=== PATIENT | female | born 1970 | race African-American/Black ===

== ENCOUNTER 2018-06-11 10:35 | Inpatient (IN) | payer OTHER ==
--- NOTE | 2018-06-11 13:06 | HP ---
CIWA Score Nausea/Vomitin Muscle Tremors: 2 Anxiety: 2 Agitation: 2 Paroxysmal Sweats: 1-Minimal Palms Moist Orientation: 0-Oriented Tacttile Disturbances: 1-Very Mild Itch/Numbness Auditory Disturbances: 1-Very Mild Visual Disturbances: 0-None Headache: 2-Mild CIWA-Ar Total Score: 13 - Admission Criteria OASAS Guidelines: Admission for Medically Managed Detox: Requires at least one of the followin. CIWA greater than 12 2. Seizures within the past 24 hours 3. Delirium tremens within the past 24 hours 4. Hallucinations within the past 24 hours 5. Acute intervention needed for co occurring medical disorder 6. Acute intervention needed for co occurring psychiatric disorder 7. Severe withdrawal that cannot be handled at a lower level of care (continued vomiting, continued diarrhea, abnormal vital signs) requiring intravenous medication and/or fluids 8. Patient presents the following: CIWA greater than 12 Admission Criteria Met: Admission criteria met Admission ROS [facility] - HPI Chief Complaint: i need help to stop drinking alcohol and marijuana Allergies/Adverse Reactions: Allergies Allergy/AdvReac Type Severity Reaction Status Date / Time Penicillins Allergy Severe Swelling Verified 06/11/18 12:58 History of Present Illness: this 47 years old female with alcohol and marijuana dependence,seeking detox, withdrawal symptom, multiple admissions in the past,last detox [facility] 03/08 not completed syncope alcohol related weight loss nicotine depression 7 cigarette history of appendectomy in 1999 amputation of left big toe in 1999 quispe bite longest period of sobriety 6 months plan for rehab Exam Limitations: No Limitations - Ebola screening Have you traveled outside of the country in the last 21 days: No Have you had contact with anyone from an Ebola affected area: No Have you been sick,other than usual withdrawal symptoms: No Do you have a fever: No - Review of Systems Constitutional: Loss of Appetite, Malaise, Night Sweats, Changes in sleep, Weakness, Unintentional Wgt. Loss EENT: reports: Nose Congestion Respiratory: reports: No Symptoms reported Cardiac: reports: No Symptoms Reported GI: reports: Nausea, Vomiting, Abdominal cramping : reports: No Symptoms Reported Musculoskeletal: reports: Back Pain, Muscle Pain Integumentary: reports: Dryness Neuro: reports: Headache, Tremors Endocrine: reports: No Symptoms Reported Hematology: reports: No Symptoms Reported Psychiatric: reports: No Sypmtoms Reported, Judgement Intact, Mood/Affect Appropiate, Orientated x3 Other Systems: Reviewed and Negative Patient History - Patient Medical History Hx Anemia: No Hx Asthma: No Hx Chronic Obstructive Pulmonary Disease (COPD): No Hx Cancer: No Hx Cardiac Disorders: No Hx Congestive Heart Failure: No Hx Hypertension: No Hx Hypercholesterolemia: No Hx Pacemaker: No HX Cerebrovascular Accident: No Hx Seizures: No Hx Dementia: No Hx Diabetes: No Hx Gastrointestinal Disorders: No Hx Liver Disease: No Hx Genitourinary Disorders: No Hx Sexually Transmitted Disorders: No Hx Renal Disease (ESRD): No Hx Thyroid Disease: No Hx Human Immunodeficiency Virus (HIV): No (05/09 negative) Hx Hepatitis C: No Hx Depression: Yes Hx Suicide Attempt: No Hx Bipolar Disorder: No Hx Schizophrenia: No Other Medical History: no suicidal,no homicidal - Patient Surgical History Past Surgical History: Yes Hx Neurologic Surgery: No Hx Cataract Extraction: No Hx Cardiac Surgery: No Hx Lung Surgery: No Hx Breast Surgery: No Hx Breast Biopsy: No Hx Abdominal Surgery: No Hx Appendectomy: Yes (early ) Hx Cholecystectomy: No Hx Genitourinary Surgery: No Hx Section: No Hx Orthopedic Surgery: Yes (amputation left big toe in 1999) Hx Hysterectomy: No Anesthesia Reaction: No - PPD History Previous Implant?: Yes Date: 01/02/15 PPD to be Administered?: No - Reproductive History Patient is a Female of Child Bearing Age (11 -55 yrs old): Yes Last Menstrual Period: 02/13/16 Patient : No - Smoking Cessation Smoking history: Current every day smoker Have you smoked in the past 12 months: Yes Aproximately how many cigarettes per day: 7 Cigars Per Day: 0 Hx Chewing Tobacco Use: No Initiated information on smoking cessation: Yes 'Breaking Loose' booklet given: 06/11/18 - Substance & Tx. History Hx Alcohol Use: Yes Hx Substance Use: Yes Substance Use Type: Alcohol, Marijuana Hx Substance Use Treatment: Yes ([facility] 03/08 not completed) - Substances Abused Alcohol Route: Oral Frequency: Daily Amount used: 1 pint liquor/4 beers Age of first use: 18 Date of Last Use: 06/10/18 Marijuana/Hashish Route: Smoking Frequency: Daily Amount used: 2 blunts Age of first use: 10 Date of Last Use: 06/10/18 Family Disease History - Family Disease History Family Disease History: Heart Disease: Father, Mother (), Sister ( ) Admission Physical Exam [facility] - Vital Signs Vital Signs: Vital Signs - 24 hr 06/11/18 10:48 Temperature 97.2 F L Pulse Rate 64 Respiratory 17 Rate Blood Pressure 129/90 - Physical General Appearance: Yes: Moderate Distress, Tremorous, Irritable, Sweating, Anxious HEENTM: Yes: Normal ENT Inspection, LADAN, Pharynx Normal, Other (no teeth upper) Respiratory: Yes: Within Normal Limits, Lungs Clear, Normal Breath Sounds Neck: Yes: Within Normal Limits, Supple, Trachea in good position Breast: Yes: Breast Exam Deferred Cardiology: Yes: Within Normal Limits, Regular Rhythm, Regular Rate, S1, S2 Abdominal: Yes: Within Normal Limits, Normal Bowel Sounds, Non Tender, Soft Genitourinary: Yes: Within Normal Limits Back: Yes: Muscle Spasm Musculoskeletal: Yes: Back pain, Muscle Pain Extremities: Yes: Within Normal Limits, Normal Range of Motion, Tremors, Other ( amputation of left big toe frostbite) Neurological: Yes: lap checker II-XII NML intact, Alert, Motor Strength 5/5 Integumentary: Yes: Dry Lymphatic: Yes: Within Normal Limits - Diagnostic (1) Alcohol dependence with withdrawal Current Visit: No Status: Acute Qualifiers: Complication of substance-induced condition: uncomplicated Qualified Code(s ): F10.230 - Alcohol dependence with withdrawal, uncomplicated (2) Cannabis dependence, uncomplicated Current Visit: No Status: Chronic (3) Nicotine dependence Current Visit: No Status: Chronic Qualifiers: Nicotine product type: cigarettes Substance use status: uncomplicated Qualified Code(s): F17.210 - Nicotine dependence, cigarettes, uncomplicated (4) Weight loss Current Visit: No Status: Suspected Cleared for Admission [facility] - Detox or Rehab [facility] Level of Care: Medically Managed Detox Regimen/Protocol: Librium [facility] Breath Alcohol Content Breath Alcohol Content: 0 Urine Pregancy Test - Result Urine Test Results: Negative- NO Line Present Urine Drug Screen - Results Drug Screen Negative: No Urine Drug Screen Results: THC-Marijuana, BZO-Benzodiazepines, MTD-Methadone Inpatient Rehab Admission - Rehab Decision to Admit Inpatient rehab admission?: No
[2018-06-11] MEDS ORDERED: ACETAMINOPHEN 325 MG TABLET (FP) PO PRN (13:19)
[2018-06-11] MEDS ORDERED: MAGNESIUM CITRATE 300 ML BOTTLE PO PRN (13:19)
[2018-06-11] MEDS ORDERED: IBUPROFEN 400 MG TABLET (FP) PO PRN (13:19)
[2018-06-11] MEDS ORDERED: MAGNESIUM HYDROX 2400MG/30ML ORAL SUSPENSION 30 ML CUP PO PRN (13:19)
[2018-06-11] MEDS ORDERED: MAG HYDROX/AL HYDROX/SIMETH 30 ML UNIT-DOSE CUP PO PRN (13:19)
[2018-06-11] MEDS ORDERED: LOPERAMIDE HCL 2 MG CAPSULE PO PRN (13:19)
[2018-06-11] MEDS ORDERED: MENTHOL/PHENOL 1 EACH UD MM PRN (13:19)
[2018-06-11] MEDS ORDERED: P-EPHED 60MG/TRIPROLIDI 2.5MG TABLET PO PRN (13:19)
[2018-06-11] MEDS ORDERED: guaiFENesin/D-METHORPHAN HB 10 ML UNIT-DOSE CUPS PO PRN (13:19)
[2018-06-11] MEDS ORDERED: hydrOXYzine PAMOATE 25 MG CAPSULE (FP) PO PRN (13:19)
[2018-06-11] MEDS ORDERED: chlordiazePOXIDE HCL 25 MG CAPSULE PO PRN (13:19)
--- NOTE | 2018-06-11 13:28 | HP ---
CIWA Score Nausea/Vomitin Muscle Tremors: 2 Anxiety: 2 Agitation: 2 Paroxysmal Sweats: 1-Minimal Palms Moist Orientation: 0-Oriented Tacttile Disturbances: 1-Very Mild Itch/Numbness Auditory Disturbances: 1-Very Mild Visual Disturbances: 0-None Headache: 2-Mild CIWA-Ar Total Score: 13 - Admission Criteria OASAS Guidelines: Admission for Medically Managed Detox: Requires at least one of the followin. CIWA greater than 12 2. Seizures within the past 24 hours 3. Delirium tremens within the past 24 hours 4. Hallucinations within the past 24 hours 5. Acute intervention needed for co occurring medical disorder 6. Acute intervention needed for co occurring psychiatric disorder 7. Severe withdrawal that cannot be handled at a lower level of care (continued vomiting, continued diarrhea, abnormal vital signs) requiring intravenous medication and/or fluids 8. Admission ROS S - HPI Allergies/Adverse Reactions: Allergies Allergy/AdvReac Type Severity Reaction Status Date / Time Penicillins Allergy Severe Swelling Verified 06/11/18 12:58 - Ebola screening Have you traveled outside of the country in the last 21 days: No Have you had contact with anyone from an Ebola affected area: No Have you been sick,other than usual withdrawal symptoms: No Do you have a fever: No Patient History - Patient Medical History Hx Anemia: No Hx Asthma: No Hx Chronic Obstructive Pulmonary Disease (COPD): No Hx Cancer: No Hx Cardiac Disorders: No Hx Congestive Heart Failure: No Hx Hypertension: No Hx Hypercholesterolemia: No Hx Pacemaker: No HX Cerebrovascular Accident: No Hx Seizures: No Hx Dementia: No Hx Diabetes: No Hx Gastrointestinal Disorders: No Hx Liver Disease: No Hx Genitourinary Disorders: No Hx Sexually Transmitted Disorders: No Hx Renal Disease (ESRD): No Hx Thyroid Disease: No Hx Human Immunodeficiency Virus (HIV): No (05/09 negative) Hx Hepatitis C: No Hx Depression: Yes Hx Suicide Attempt: No Hx Bipolar Disorder: No Hx Schizophrenia: No Other Medical History: no suicidal,no homicidal - Patient Surgical History Past Surgical History: Yes Hx Neurologic Surgery: No Hx Cataract Extraction: No Hx Cardiac Surgery: No Hx Lung Surgery: No Hx Breast Surgery: No Hx Breast Biopsy: No Hx Abdominal Surgery: No Hx Appendectomy: Yes (early ) Hx Cholecystectomy: No Hx Genitourinary Surgery: No Hx Section: No Hx Orthopedic Surgery: Yes (amputation left big toe in 1999) Hx Hysterectomy: No Anesthesia Reaction: No - PPD History Previous Implant?: Yes Documented Results: Negative w/proof Implanted On Prior [facility] Admission?: Yes Date: 01/02/15 - Reproductive History Last Menstrual Period: 02/13/16 Patient : No - Smoking Cessation Smoking history: Current every day smoker Have you smoked in the past 12 months: Yes Aproximately how many cigarettes per day: 7 Cigars Per Day: 0 Hx Chewing Tobacco Use: No Initiated information on smoking cessation: Yes - Substance & Tx. History Hx Alcohol Use: Yes Hx Substance Use: Yes Substance Use Type: Alcohol, Marijuana Hx Substance Use Treatment: Yes ([facility] 03/08) - Substances Abused Alcohol Route: Oral Frequency: Daily Amount used: 1 pint liquor/4 beers Age of first use: 18 Date of Last Use: 06/10/18 Marijuana/Hashish Route: Smoking Frequency: Daily Amount used: 2 blunts Age of first use: 10 Date of Last Use: 06/10/18 Family Disease History - Family Disease History Family Disease History: Heart Disease: Father, Mother (), Sister ( ) Admission Physical Exam [facility] - Vital Signs Vital Signs: Vital Signs - 24 hr 06/11/18 10:48 Temperature 97.2 F L Pulse Rate 64 Respiratory 17 Rate Blood Pressure 129/90 - Physical General Appearance: Yes: Moderate Distress, Tremorous, Irritable, Sweating, Anxious HEENTM: Yes: Normal ENT Inspection, LADAN, Pharynx Normal, Other (no upper teeth) Respiratory: Yes: Lungs Clear, Normal Breath Sounds, No Respiratory Distress Neck: Yes: Within Normal Limits, Supple, Trachea in good position Breast: Yes: Breast Exam Deferred Cardiology: Yes: Within Normal Limits, Regular Rhythm, Regular Rate, S1, S2 Abdominal: Yes: Within Normal Limits, Normal Bowel Sounds, Non Tender, Flat, Soft Genitourinary: Yes: Within Normal Limits Back: Yes: Muscle Spasm Musculoskeletal: Yes: Back pain, Muscle Pain Extremities: Yes: Tremors Neurological: Yes: back tufter II-XII NML intact, Alert, Motor Strength 5/5 Integumentary: Yes: Dry Lymphatic: Yes: Within Normal Limits - Diagnostic (1) Alcohol dependence with withdrawal Current Visit: No Status: Acute Qualifiers: Complication of substance-induced condition: uncomplicated Qualified Code(s ): F10.230 - Alcohol dependence with withdrawal, uncomplicated (2) Cannabis dependence, uncomplicated Current Visit: No Status: Chronic (3) Nicotine dependence Current Visit: No Status: Chronic Qualifiers: Nicotine product type: cigarettes Substance use status: uncomplicated Qualified Code(s): F17.210 - Nicotine dependence, cigarettes, uncomplicated (4) Weight loss Current Visit: No Status: Suspected (5) No natural teeth Current Visit: Yes Status: Acute Cleared for Admission [facility] - Detox or Rehab [facility] Level of Care: Medically Managed Detox Regimen/Protocol: Librium [facility] Breath Alcohol Content Breath Alcohol Content: 0 Urine Pregancy Test - Result Urine Test Results: Negative- NO Line Present Urine Drug Screen - Results Drug Screen Negative: No Urine Drug Screen Results: THC-Marijuana, BZO-Benzodiazepines, MTD-Methadone
[2018-06-11] MEDS: chlordiazePOXIDE HCL 25 MG CAPSULE PO SCH ×2 (17:28→22:26)
[2018-06-11] MEDS: THIAMINE HCL 100 MG TABLET (FP) PO SCH (22:26)
[2018-06-12] MEDS: chlordiazePOXIDE HCL 25 MG CAPSULE PO SCH ×4 (05:42→22:09)
[2018-06-12] MEDS ORDERED: METHADONE HCL 10 MG TABLET PO ONE (09:24)
[2018-06-12] MEDS ORDERED: METHADONE 40 MG, METHADONE 30 MG PO ONE (09:45)
[2018-06-12] MEDS ORDERED: METHADONE HCL 40 MG DISPERSABLE TABLET ONE (10:09)
[2018-06-12] MEDS ORDERED: METHADONE HCL 10 MG TABLET ONE (10:09)
[2018-06-12 10:34] LABS: ALBUMIN 3.8 g/dl (3.4-5.0); ALK PHOS 83 U/L (45-117); ANION GAP 6 MMOL/L (8-16); BILIRUBIN,TOTAL 0.5 mg/dL (0.2-1); BLOOD UREA NITROGEN 17 mg/dL (7-18); CALCIUM 8.7 mg/dL (8.5-10.1); CHLORIDE 104 mmol/L (98-107); CO2 26 mmol/L (21-32); CREATININE 0.8 mg/dL (0.55-1.3); GLUCOSE,RANDOM 74 mg/dL (74-106); POTASSIUM 4.2 mmol/L (3.5-5.1); SGOT/AST 20 U/L (15-37); SGPT/ALT 24 U/L (13-61); SODIUM 136 mmol/L (136-145); TOT PROT 7.2 g/dl (6.4-8.2)
[2018-06-12 10:40] LABS: HEMATOCRIT 38.9 % (32.4-45.2); HEMOGLOBIN 13.2 GM/dL (10.7-15.3); MCH 32.2 pg (25.7-33.7); MCHC 33.9 g/dl (32.0-36.0); MEAN CELL VOLUME 95.3 fl (80-96); MEAN PLT VOLUME 9.7 fl (7.5-11.1); PLATELET COUNT 237 K/MM3 (134-434); RBC 4.09 M/mm3 (3.60-5.2); RDW 14.6 % (11.6-15.6); WHITE BLOOD COUNT 8.7 K/mm3 (4.0-10.0)
[2018-06-12] MEDS: PRENATAL VITAMINS W/ FOLIC ACID TABLET (FP) PO SCH (10:49)
[2018-06-12 11:15] LABS: SICKLE CELL SCREEN NEGATIVE (NEGATIVE)
--- NOTE | 2018-06-12 11:38 | PN ---
[facility] CIWA - CIWA Score Nausea/Vomitin-No Nausea/No Vomiting Muscle Tremors: 3 Anxiety: 2 Agitation: 3 Paroxysmal Sweats: 2 Orientation: 0-Oriented Tacttile Disturbances: 0-None Auditory Disturbances: 0-None Visual Disturbances: 0-None Headache: 0-None Present CIWA-Ar Total Score: 10 S Progress Note (SOAP) Subjective: sweats irritable agitation body aches Objective: 06/12/18 11:53 Vital Signs Temperature 98.2 F 06/12/18 09:01 Pulse Rate 63 06/12/18 09:01 Respiratory Rate 18 06/12/18 09:01 Blood Pressure 112/68 06/12/18 09:01 O2 Sat by Pulse Oximetry (%) Laboratory Tests 06/12/18 06/12/18 06/12/18 06:25 06:25 06:25 WBC 8.7 RBC 4.09 Hgb 13.2 Hct 38.9 MCV 95.3 MCH 32.2 MCHC 33.9 RDW 14.6 Plt Count 237 MPV 9.7 Sickle Cell Screen Negative Sodium 136 Potassium 4.2 Chloride 104 Carbon Dioxide 26 Anion Gap 6 L BUN 17 Creatinine 0.8 Creat Clearance w eGFR > 60 Random Glucose 74 Calcium 8.7 Total Bilirubin 0.5 AST 20 ALT 24 Alkaline Phosphatase 83 Total Protein 7.2 Albumin 3.8 RPR Titer Nonreactive aaox3 ambulating no acute distress Assessment: 06/12/18 11:53 withdrawal sx Plan: continue detox increase fluids
--- NOTE | 2018-06-12 11:55 | PN ---
[facility] Progress Note Note: ulcer to right lower leg noted, healing process noted; will order to cleanse with N/S, apply silverdene and cover with gauze.
[2018-06-12] MEDS: SILVER SULFADIAZINE 1% TOP CREAM 400 GM JAR TP SCH (13:30)
[2018-06-12] MEDS: THIAMINE HCL 100 MG TABLET (FP) PO SCH (22:09)
[2018-06-12] MEDS: MELATONIN 5 MG TABLETS PO PRN (22:09)
[2018-06-13] MEDS ORDERED: METHADONE HCL 10 MG TABLET ONE (04:45)
[2018-06-13] MEDS ORDERED: METHADONE HCL 40 MG DISPERSABLE TABLET ONE (04:45)
[2018-06-13] MEDS: METHADONE 40 MG, METHADONE 30 MG PO SCH (05:28)
[2018-06-13] MEDS: chlordiazePOXIDE HCL 25 MG CAPSULE PO SCH ×2 (05:28→11:32)
[2018-06-13] MEDS ORDERED: METHADONE HCL 40 MG DISPERSABLE TABLET PO SCH (06:00)
[2018-06-13] MEDS: PRENATAL VITAMINS W/ FOLIC ACID TABLET (FP) PO SCH (10:14)
[2018-06-13] MEDS: SILVER SULFADIAZINE 1% TOP CREAM 400 GM JAR TP SCH (10:15)
--- NOTE | 2018-06-13 15:07 | PN ---
[facility] CIWA - CIWA Score Nausea/Vomitin-No Nausea/No Vomiting Muscle Tremors: 4-Moderate,w/Arms Extend Anxiety: 4-Mod. Anxious/Guarded Agitation: 4-Moderately Restless Paroxysmal Sweats: 1-Minimal Palms Moist Orientation: 0-Oriented Tacttile Disturbances: 0-None Auditory Disturbances: 0-None Visual Disturbances: 0-None Headache: 0-None Present CIWA-Ar Total Score: 13 B[facility] Progress Note (SOAP) Subjective: PT C/O STOMACH CRAMPS AND DIARRHEA. PT REPORTS HX FX OF RIGHT ANKLE 4 MONTHS AGO. ALSO HAS ULCER OF RIGHT ANKLE WHICH HE STATES WAS A BLISTER FROM HOT WATER AT HOME THAT OPENED UP. Objective: 06/13/18 15:06 Vital Signs 06/13/18 10:15 Temperature 98.1 F Pulse Rate 62 Respiratory 16 Rate Blood Pressure 103/62 Laboratory Tests 06/12/18 06/12/18 06/12/18 06:25 06:25 06:25 WBC 8.7 RBC 4.09 Hgb 13.2 Hct 38.9 MCV 95.3 MCH 32.2 MCHC 33.9 RDW 14.6 Plt Count 237 MPV 9.7 Sickle Cell Screen Negative Sodium 136 Potassium 4.2 Chloride 104 Carbon Dioxide 26 Anion Gap 6 L BUN 17 Creatinine 0.8 Creat Clearance w eGFR > 60 Random Glucose 74 Calcium 8.7 Total Bilirubin 0.5 AST 20 ALT 24 Alkaline Phosphatase 83 Total Protein 7.2 Albumin 3.8 RPR Titer Nonreactive Assessment: 06/13/18 15:06 WITHDRAWAL SX Plan: CONTINUE DETOX CONTINUE CURRENT DRESSING.
[2018-06-13] MEDS: chlordiazePOXIDE 5 MG CAPSULE PO SCH ×2 (18:13→22:17)
[2018-06-13] MEDS: THIAMINE HCL 100 MG TABLET (FP) PO SCH (22:17)
[2018-06-13] MEDS: MELATONIN 5 MG TABLETS PO PRN (22:18)
[2018-06-14] MEDS ORDERED: METHADONE HCL 40 MG DISPERSABLE TABLET ONE (04:56)
[2018-06-14] MEDS ORDERED: METHADONE HCL 10 MG TABLET ONE (04:56)
[2018-06-14] MEDS: METHADONE 40 MG, METHADONE 30 MG PO SCH (05:28)
[2018-06-14] MEDS: chlordiazePOXIDE 5 MG CAPSULE PO SCH ×2 (05:28→10:13)
[2018-06-14] MEDS: NICOTINE POLACRILEX 2 MG GUM BC PRN ×2 (05:32→17:48)
[2018-06-14] MEDS: PRENATAL VITAMINS W/ FOLIC ACID TABLET (FP) PO SCH (10:13)
[2018-06-14] MEDS: SILVER SULFADIAZINE 1% TOP CREAM 400 GM JAR TP SCH (10:13)
--- NOTE | 2018-06-14 17:32 | PN ---
S Progress Note (SOAP) Subjective: Sweating, chills, tremor, interrupted sleep Objective: 06/14/18 17:31 Last Vital Signs Temp Pulse Resp BP Pulse Ox 97.6 F 63 16 107/72 06/14/18 13:35 06/14/18 13:35 06/14/18 13:35 06/14/18 13:35 Laboratory Tests 06/12/18 06/12/18 06/12/18 06:25 06:25 06:25 WBC 8.7 RBC 4.09 Hgb 13.2 Hct 38.9 MCV 95.3 MCH 32.2 MCHC 33.9 RDW 14.6 Plt Count 237 MPV 9.7 Sickle Cell Screen Negative Sodium 136 Potassium 4.2 Chloride 104 Carbon Dioxide 26 Anion Gap 6 L BUN 17 Creatinine 0.8 Creat Clearance w eGFR > 60 Random Glucose 74 Calcium 8.7 Total Bilirubin 0.5 AST 20 ALT 24 Alkaline Phosphatase 83 Total Protein 7.2 Albumin 3.8 RPR Titer Nonreactive Labs reviewed Assessment: 06/14/18 17:31 Withdrawal symptoms Plan: Continue detox Encouraged PO water hydration
[2018-06-14] MEDS: chlordiazePOXIDE HCL 10 MG CAPSULE PO SCH ×2 (17:42→22:09)
[2018-06-14] MEDS: THIAMINE HCL 100 MG TABLET (FP) PO SCH (22:09)
[2018-06-14] MEDS: MELATONIN 5 MG TABLETS PO PRN (22:10)
[2018-06-15] MEDS ORDERED: METHADONE HCL 10 MG TABLET ONE (03:53)
[2018-06-15] MEDS ORDERED: METHADONE HCL 40 MG DISPERSABLE TABLET ONE (03:53)
[2018-06-15] MEDS: chlordiazePOXIDE HCL 10 MG CAPSULE PO SCH ×2 (05:37→10:22)
[2018-06-15] MEDS: METHADONE 40 MG, METHADONE 30 MG PO SCH (05:37)
[2018-06-15] MEDS: NICOTINE POLACRILEX 2 MG GUM BC PRN (05:41)
--- NOTE | 2018-06-15 08:42 | DS ---
[facility] Detox Discharge Summary Admission Date: 06/11/18 Discharge Date: 06/15/18 - History Present History: Alcohol Dependence, Cannabis Dependence, Opioid Dependence - Physical Exam Results Vital Signs: Vital Signs Temperature 97.9 F 06/15/18 06:47 Pulse Rate 72 06/15/18 06:47 Respiratory Rate 18 06/15/18 06:47 Blood Pressure 117/64 06/15/18 06:47 O2 Sat by Pulse Oximetry (%) - Treatment Hospital Course: Detox Protocol Followed, Detoxed Safely, Responded well, Discharged Condition Good, Rehab Referral Accepted - Medication Discharge Medications: Ambulatory Orders NK [No Known Home Medication] 06/11/18 - Diagnosis (1) No natural teeth Current Visit: Yes Status: Chronic (2) Alcohol dependence with withdrawal Current Visit: No Status: Chronic Qualifiers: Complication of substance-induced condition: uncomplicated Qualified Code(s ): F10.230 - Alcohol dependence with withdrawal, uncomplicated (3) Uncomplicated opioid dependence Current Visit: Yes Status: Chronic (4) Cannabis dependence, uncomplicated Current Visit: Yes Status: Chronic (5) Cocaine dependence Current Visit: Yes Status: Chronic Qualifiers: Substance use status: uncomplicated Qualified Code(s): F14.20 - Cocaine dependence, uncomplicated (6) MDD (major depressive disorder) Current Visit: No Status: Chronic Qualifiers: Major depression recurrence: recurrent Active/Remission status: in partial remission Qualified Code(s): F33.41 - Major depressive disorder, recurrent, in partial remission (7) Nicotine dependence Current Visit: Yes Status: Chronic Qualifiers: Nicotine product type: cigarettes Substance use status: uncomplicated Qualified Code(s): F17.210 - Nicotine dependence, cigarettes, uncomplicated (8) Weight loss Current Visit: No Status: Suspected - AMA Did Patient Leave Against [facility]
[2018-06-15] MEDS: SILVER SULFADIAZINE 1% TOP CREAM 400 GM JAR TP SCH (10:22)
[2018-06-15] MEDS: PRENATAL VITAMINS W/ FOLIC ACID TABLET (FP) PO SCH (10:22)
[2018-06-15 14:56] VITALS: BP 125/91; PULSE 82; TEMP 97.5
== END 2018-06-15 13:58 | disposition other institution (70) | DRG 773 ==
LOC: YASAS 10:35 → Y6N 13:12
PROVIDERS: ADMIT Surgery; ATTEND Surgery
PROC: HZ2ZZZZ Detoxification Services for Substance Abuse Treatment (ICD-10-PCS; principal; 2018-06-11)
DX: F11.23 Opioid dependence with withdrawal (principal); F10.230 Alcohol dependence with withdrawal, uncomplicated; F14.20 Cocaine dependence, uncomplicated; F12.20 Cannabis dependence, uncomplicated; F17.210 Nicotine dependence, cigarettes, uncomplicated; F33.41 Major depressive disorder, recurrent, in partial remission; L97.311 Non-pressure chronic ulcer of right ankle limited to breakdown of skin; K00.0 Anodontia; R63.4 Abnormal weight loss; Z68.20 Body mass index [BMI] 20.0-20.9, adult; Z87.81 Personal history of (healed) traumatic fracture; Z89.412 Acquired absence of left great toe
CPT/HCPCS: 36415; 80053; 85027; 85660; 86593

== ENCOUNTER 2018-06-15 14:08 | Inpatient (IN) | payer OTHER ==
--- NOTE | 2018-06-15 13:57 | HP ---
[facility] Rehab Assess/Revision - Admission History Admitted to Rehab from[facility] - Findings Detox History & Physical reviewed: Yes Concur with findings: Yes Inpatient Rehab Admission - Rehab Decision to Admit Inpatient rehab admission?: Yes - Initial Determination Are CD services needed?: Yes Free of communicable disease: Yes Not in need of hospitalization: Yes - Rehab Admission Criteria Previous failed treatment: Yes Poor recovery environment: Yes Comorbidities: Yes Lacks judgement: Yes Patient is meeting Inpatient Rehab admission criteria:: Yes
[~2018-06-15 14:08] MED LIST: ACETAMINOPHEN 325 MG TABLET (FP) PO PRN; LOPERAMIDE HCL 2 MG CAPSULE PO PRN; MAG HYDROX/AL HYDROX/SIMETH 30 ML UNIT-DOSE CUP PO PRN; MAGNESIUM CITRATE 300 ML BOTTLE PO PRN; MAGNESIUM HYDROX 2400MG/30ML ORAL SUSPENSION 30 ML CUP PO PRN; MENTHOL/PHENOL 1 EACH UD MM PRN; P-EPHED 60MG/TRIPROLIDI 2.5MG TABLET PO PRN; guaiFENesin/D-METHORPHAN HB 10 ML UNIT-DOSE CUPS PO PRN
[2018-06-15] MEDS: MELATONIN 5 MG TABLETS PO PRN (21:09)
[2018-06-15] MEDS: THIAMINE HCL 100 MG TABLET (FP) PO SCH (21:09)
[2018-06-15] MEDS: hydrOXYzine PAMOATE 50 MG CAPSULE (FP) PO PRN (21:09)
[2018-06-15] MEDS: NICOTINE POLACRILEX 4 MG GUM BUC PRN (21:26)
[2018-06-16] MEDS ORDERED: METHADONE HCL 10 MG TABLET ONE (04:54)
[2018-06-16] MEDS ORDERED: METHADONE HCL 40 MG DISPERSABLE TABLET ONE (04:54)
[2018-06-16] MEDS ORDERED: METHADONE HCL 10 MG TABLET PO SCH (06:00)
[2018-06-16] MEDS: METHADONE 40 MG, METHADONE 30 MG PO SCH (06:14)
[2018-06-16] MEDS: NICOTINE 21 MG/24 HOURS TOPICAL PATCH TD SCH (09:54)
[2018-06-16] MEDS: PRENATAL VITAMINS W/ FOLIC ACID TABLET (FP) PO SCH (09:54)
[2018-06-16] MEDS: NICOTINE POLACRILEX 4 MG GUM BUC PRN (09:55)
[2018-06-16] MEDS: SILVER SULFADIAZINE 1% TOP CREAM 50 GM JAR TP SCH (14:34)
[2018-06-16] MEDS: THIAMINE HCL 100 MG TABLET (FP) PO SCH (21:28)
[2018-06-16] MEDS: hydrOXYzine PAMOATE 50 MG CAPSULE (FP) PO PRN (21:29)
[2018-06-16] MEDS: MELATONIN 5 MG TABLETS PO PRN (21:29)
[2018-06-17] MEDS ORDERED: METHADONE HCL 10 MG TABLET ONE (04:09)
[2018-06-17] MEDS ORDERED: METHADONE HCL 40 MG DISPERSABLE TABLET ONE (04:09)
[2018-06-17] MEDS: METHADONE 40 MG, METHADONE 30 MG PO SCH (06:05)
[2018-06-17] MEDS ORDERED: PT OWN MED DRAWER 7, Y5N ONE (08:53)
[2018-06-17] MEDS: PRENATAL VITAMINS W/ FOLIC ACID TABLET (FP) PO SCH (10:43)
[2018-06-17] MEDS: NICOTINE POLACRILEX 4 MG GUM BUC PRN ×2 (10:43→21:25)
[2018-06-17] MEDS: SILVER SULFADIAZINE 1% TOP CREAM 50 GM JAR TP SCH (10:43)
[2018-06-17] MEDS: NICOTINE 21 MG/24 HOURS TOPICAL PATCH TD SCH (10:43)
[2018-06-17] MEDS: THIAMINE HCL 100 MG TABLET (FP) PO SCH (21:24)
[2018-06-17] MEDS: MELATONIN 5 MG TABLETS PO PRN (21:24)
[2018-06-17] MEDS: hydrOXYzine PAMOATE 50 MG CAPSULE (FP) PO PRN (21:24)
[2018-06-18] MEDS ORDERED: METHADONE HCL 10 MG TABLET ONE (03:50)
[2018-06-18] MEDS ORDERED: METHADONE HCL 40 MG DISPERSABLE TABLET ONE (03:50)
[2018-06-18] MEDS: METHADONE 40 MG, METHADONE 30 MG PO SCH (06:13)
[2018-06-18] MEDS: SILVER SULFADIAZINE 1% TOP CREAM 50 GM JAR TP SCH (10:15)
[2018-06-18] MEDS: NICOTINE 21 MG/24 HOURS TOPICAL PATCH TD SCH (10:15)
[2018-06-18] MEDS: PRENATAL VITAMINS W/ FOLIC ACID TABLET (FP) PO SCH (10:15)
[2018-06-18] MEDS: NICOTINE POLACRILEX 4 MG GUM BUC PRN (10:16)
[2018-06-18] MEDS: hydrOXYzine PAMOATE 50 MG CAPSULE (FP) PO PRN (21:32)
[2018-06-18] MEDS: THIAMINE HCL 100 MG TABLET (FP) PO SCH (21:32)
[2018-06-18] MEDS: MELATONIN 5 MG TABLETS PO PRN (21:32)
[2018-06-19] MEDS ORDERED: METHADONE HCL 40 MG DISPERSABLE TABLET ONE (03:17)
[2018-06-19] MEDS ORDERED: METHADONE HCL 10 MG TABLET ONE (03:17)
[2018-06-19] MEDS: METHADONE 40 MG, METHADONE 30 MG PO SCH (06:13)
[2018-06-19] MEDS: hydrOXYzine PAMOATE 50 MG CAPSULE (FP) PO PRN ×2 (10:11→21:26)
[2018-06-19] MEDS: PRENATAL VITAMINS W/ FOLIC ACID TABLET (FP) PO SCH (10:11)
[2018-06-19] MEDS: NICOTINE 21 MG/24 HOURS TOPICAL PATCH TD SCH (10:11)
[2018-06-19] MEDS: SILVER SULFADIAZINE 1% TOP CREAM 50 GM JAR TP SCH (10:11)
[2018-06-19] MEDS: NICOTINE POLACRILEX 4 MG GUM BUC PRN (10:12)
[2018-06-19] MEDS: MELATONIN 5 MG TABLETS PO PRN (21:26)
[2018-06-19] MEDS: THIAMINE HCL 100 MG TABLET (FP) PO SCH (21:26)
[2018-06-20] MEDS ORDERED: METHADONE HCL 40 MG DISPERSABLE TABLET ONE (04:45)
[2018-06-20] MEDS ORDERED: METHADONE HCL 10 MG TABLET ONE (04:45)
[2018-06-20] MEDS: METHADONE 40 MG, METHADONE 30 MG PO SCH (06:05)
[2018-06-20] MEDS: PRENATAL VITAMINS W/ FOLIC ACID TABLET (FP) PO SCH (10:03)
[2018-06-20] MEDS: SILVER SULFADIAZINE 1% TOP CREAM 50 GM JAR TP SCH (10:03)
[2018-06-20] MEDS: hydrOXYzine PAMOATE 50 MG CAPSULE (FP) PO PRN ×3 (10:04→21:04)
[2018-06-20] MEDS: NICOTINE POLACRILEX 4 MG GUM BUC PRN (10:05)
[2018-06-20] MEDS: NICOTINE 21 MG/24 HOURS TOPICAL PATCH TD SCH (10:05)
[2018-06-20] MEDS: MELATONIN 5 MG TABLETS PO PRN (21:04)
[2018-06-20] MEDS: THIAMINE HCL 100 MG TABLET (FP) PO SCH (21:04)
[2018-06-21] MEDS: IBUPROFEN 400 MG TABLET (FP) PO PRN ×2 (00:44→18:47)
[2018-06-21] MEDS ORDERED: METHADONE HCL 40 MG DISPERSABLE TABLET ONE (04:13)
[2018-06-21] MEDS ORDERED: METHADONE HCL 10 MG TABLET ONE (04:13)
[2018-06-21] MEDS: METHADONE 40 MG, METHADONE 30 MG PO SCH (06:13)
[2018-06-21] MEDS ORDERED: LIDOCAINE VISCOUS 2% ORAL/TOP 20 ML UNIT-DOSE CUP MM PRN (06:30)
--- NOTE | 2018-06-21 07:30 | PN ---
S Progress Note Note: Patient complained of mouth pain and mouth sore. Patient has no upper teeth and some missing lower tooth. She has two protruding canine tooth that is in constant contact with her upper mouth. Vital Signs Temperature 98.0 F 06/21/18 07:07 Pulse Rate 73 06/21/18 07:07 Respiratory Rate 18 06/21/18 07:07 Blood Pressure 121/76 06/21/18 07:07 O2 Sat by Pulse Oximetry (%) Action: Lodicaine 2% viscous oral 20 ml MM oral prn ordered
[2018-06-21] MEDS: PRENATAL VITAMINS W/ FOLIC ACID TABLET (FP) PO SCH (09:59)
[2018-06-21] MEDS: hydrOXYzine PAMOATE 50 MG CAPSULE (FP) PO PRN ×3 (10:00→21:19)
[2018-06-21] MEDS: NICOTINE 21 MG/24 HOURS TOPICAL PATCH TD SCH (10:00)
[2018-06-21] MEDS: SILVER SULFADIAZINE 1% TOP CREAM 50 GM JAR TP SCH (10:00)
[2018-06-21] MEDS: NICOTINE POLACRILEX 4 MG GUM BUC PRN (10:02)
[2018-06-21] MEDS: THIAMINE HCL 100 MG TABLET (FP) PO SCH (21:19)
[2018-06-21] MEDS: MELATONIN 5 MG TABLETS PO PRN (21:19)
[2018-06-22] MEDS ORDERED: METHADONE HCL 40 MG DISPERSABLE TABLET ONE (03:37)
[2018-06-22] MEDS ORDERED: METHADONE HCL 10 MG TABLET ONE (03:37)
[2018-06-22] MEDS: METHADONE 40 MG, METHADONE 30 MG PO SCH (06:17)
[2018-06-22] MEDS ORDERED: COLLOIDAL OATMEAL 1 BAR EACH TP PRN (09:52)
--- NOTE | 2018-06-22 09:56 | PN ---
[facility] Progress Note Note: PATIENT SEEN FOR C/O MOUTH SORES. PATIENT EXAMINED AND HAS MISSING UPPER TEETH. TWO SMALL CHANCRE SORES NOTED B/L UPPER GUMS. CURRENTLY ON VICOUS LIDOCAINE FOR PAIN. WILL INCREASE MOTRIN TO 600MG Q6H PRN. MONITOR CLINICALLY. Vital Signs Temperature 98.0 F 06/21/18 07:07 Pulse Rate 69 06/22/18 07:17 Respiratory Rate 18 06/22/18 07:17 Blood Pressure 112/65 06/22/18 07:17 O2 Sat by Pulse Oximetry (%)
[2018-06-22] MEDS: PRENATAL VITAMINS W/ FOLIC ACID TABLET (FP) PO SCH (10:26)
[2018-06-22] MEDS: SILVER SULFADIAZINE 1% TOP CREAM 50 GM JAR TP SCH (10:26)
[2018-06-22] MEDS: NICOTINE 21 MG/24 HOURS TOPICAL PATCH TD SCH (10:26)
[2018-06-22] MEDS: hydrOXYzine PAMOATE 50 MG CAPSULE (FP) PO PRN ×3 (10:27→21:38)
[2018-06-22] MEDS: IBUPROFEN 600 MG TABLET (FP) PO PRN (16:22)
[2018-06-22] MEDS: THIAMINE HCL 100 MG TABLET (FP) PO SCH (21:38)
[2018-06-23] MEDS: IBUPROFEN 600 MG TABLET (FP) PO PRN ×3 (04:03→22:56)
[2018-06-23] MEDS ORDERED: METHADONE HCL 40 MG DISPERSABLE TABLET ONE (04:13)
[2018-06-23] MEDS ORDERED: METHADONE HCL 10 MG TABLET ONE (04:13)
[2018-06-23] MEDS: METHADONE 40 MG, METHADONE 30 MG PO SCH (06:00)
[2018-06-23] MEDS: PRENATAL VITAMINS W/ FOLIC ACID TABLET (FP) PO SCH (10:10)
[2018-06-23] MEDS: hydrOXYzine PAMOATE 50 MG CAPSULE (FP) PO PRN ×3 (10:10→21:24)
[2018-06-23] MEDS: NICOTINE POLACRILEX 4 MG GUM BUC PRN ×3 (10:10→22:57)
[2018-06-23] MEDS: NICOTINE 21 MG/24 HOURS TOPICAL PATCH TD SCH (10:11)
[2018-06-23] MEDS: SILVER SULFADIAZINE 1% TOP CREAM 50 GM JAR TP SCH (10:11)
[2018-06-23] MEDS: THIAMINE HCL 100 MG TABLET (FP) PO SCH (21:24)
[2018-06-23] MEDS: MELATONIN 5 MG TABLETS PO PRN (21:25)
[2018-06-24] MEDS ORDERED: METHADONE HCL 40 MG DISPERSABLE TABLET ONE (05:08)
[2018-06-24] MEDS ORDERED: METHADONE HCL 10 MG TABLET ONE (05:08)
[2018-06-24] MEDS: METHADONE 40 MG, METHADONE 30 MG PO SCH (06:01)
[2018-06-24] MEDS: NICOTINE POLACRILEX 4 MG GUM BUC PRN ×4 (06:40→21:21)
[2018-06-24] MEDS: NICOTINE 21 MG/24 HOURS TOPICAL PATCH TD SCH ×2 (10:04→10:06)
[2018-06-24] MEDS: PRENATAL VITAMINS W/ FOLIC ACID TABLET (FP) PO SCH (10:04)
[2018-06-24] MEDS: hydrOXYzine PAMOATE 50 MG CAPSULE (FP) PO PRN ×3 (10:04→21:20)
[2018-06-24] MEDS: SILVER SULFADIAZINE 1% TOP CREAM 50 GM JAR TP SCH (10:04)
[2018-06-24] MEDS: THIAMINE HCL 100 MG TABLET (FP) PO SCH (21:20)
[2018-06-24] MEDS: MELATONIN 5 MG TABLETS PO PRN (21:20)
[2018-06-25] MEDS ORDERED: METHADONE HCL 40 MG DISPERSABLE TABLET ONE (05:14)
[2018-06-25] MEDS ORDERED: METHADONE HCL 10 MG TABLET ONE (05:14)
[2018-06-25] MEDS: METHADONE 40 MG, METHADONE 30 MG PO SCH (06:00)
[2018-06-25] MEDS: SILVER SULFADIAZINE 1% TOP CREAM 50 GM JAR TP SCH (10:12)
[2018-06-25] MEDS: PRENATAL VITAMINS W/ FOLIC ACID TABLET (FP) PO SCH (10:12)
[2018-06-25] MEDS: NICOTINE 21 MG/24 HOURS TOPICAL PATCH TD SCH (10:13)
[2018-06-25] MEDS: NICOTINE POLACRILEX 4 MG GUM BUC PRN ×2 (10:14→21:39)
[2018-06-25] MEDS: THIAMINE HCL 100 MG TABLET (FP) PO SCH (21:39)
[2018-06-26] MEDS ORDERED: METHADONE HCL 10 MG TABLET ONE (04:39)
[2018-06-26] MEDS ORDERED: METHADONE HCL 40 MG DISPERSABLE TABLET ONE (04:40)
[2018-06-26] MEDS: METHADONE 40 MG, METHADONE 30 MG PO SCH (06:11)
[2018-06-26] MEDS: NICOTINE POLACRILEX 4 MG GUM BUC PRN ×3 (06:51→13:57)
[2018-06-26] MEDS: PRENATAL VITAMINS W/ FOLIC ACID TABLET (FP) PO SCH (10:21)
[2018-06-26] MEDS: NICOTINE 21 MG/24 HOURS TOPICAL PATCH TD SCH (10:22)
[2018-06-26] MEDS: SILVER SULFADIAZINE 1% TOP CREAM 50 GM JAR TP SCH (10:22)
[2018-06-26] MEDS: THIAMINE HCL 100 MG TABLET (FP) PO SCH (23:30)
[2018-06-27] MEDS ORDERED: METHADONE HCL 40 MG DISPERSABLE TABLET ONE (05:11)
[2018-06-27] MEDS ORDERED: METHADONE HCL 10 MG TABLET ONE (05:11)
[2018-06-27] MEDS: METHADONE 40 MG, METHADONE 30 MG PO SCH (06:04)
[2018-06-27] MEDS: NICOTINE POLACRILEX 4 MG GUM BUC PRN ×3 (08:36→18:27)
[2018-06-27] MEDS: NICOTINE 21 MG/24 HOURS TOPICAL PATCH TD SCH (09:31)
[2018-06-27] MEDS: SILVER SULFADIAZINE 1% TOP CREAM 50 GM JAR TP SCH (09:31)
[2018-06-27] MEDS: PRENATAL VITAMINS W/ FOLIC ACID TABLET (FP) PO SCH (09:31)
[2018-06-27] MEDS: THIAMINE HCL 100 MG TABLET (FP) PO SCH (21:58)
[2018-06-28] MEDS ORDERED: METHADONE HCL 40 MG DISPERSABLE TABLET ONE (03:12)
[2018-06-28] MEDS ORDERED: METHADONE HCL 10 MG TABLET ONE (03:12)
[2018-06-28] MEDS: METHADONE 40 MG, METHADONE 30 MG PO SCH (06:33)
[2018-06-28] MEDS: NICOTINE 21 MG/24 HOURS TOPICAL PATCH TD SCH (09:40)
[2018-06-28] MEDS: PRENATAL VITAMINS W/ FOLIC ACID TABLET (FP) PO SCH (09:40)
[2018-06-28] MEDS: SILVER SULFADIAZINE 1% TOP CREAM 50 GM JAR TP SCH (09:40)
[2018-06-28] MEDS: NICOTINE POLACRILEX 4 MG GUM BUC PRN ×2 (13:00→21:26)
[2018-06-28] MEDS: THIAMINE HCL 100 MG TABLET (FP) PO SCH (21:25)
[2018-06-29] MEDS ORDERED: METHADONE HCL 40 MG DISPERSABLE TABLET ONE (04:00)
[2018-06-29] MEDS ORDERED: METHADONE HCL 10 MG TABLET ONE (04:00)
[2018-06-29] MEDS: METHADONE 40 MG, METHADONE 30 MG PO SCH (05:44)
[2018-06-29 07:05] VITALS: BP 123/85; PULSE 62; TEMP 97
[2018-06-29] MEDS: NICOTINE POLACRILEX 4 MG GUM BUC PRN (08:31)
--- NOTE | 2018-06-29 09:40 | PN ---
[facility] Progress Note Note: REHAB DISCHARGE NOTE: PATIENT REQUESTED EARLY DISCHARGE FROM REHAB SHE COMPLETED 14 DAYS OF TREATMENT. PATIENT TO FOLLOW UP WITH [facility] AND STATES SHE ACCOMPLISHED ALL REHAB GOALS. PATIENT IS MEDICALLY STABLE AT THIS TIME AND DENIES SI/HI. RIGHT ANTERIOR LOWER LEG ULCER RESOLVED. PATIENT ENCOURAGED TO ATTEND GROUP MEETINGS TO PREVENT RELAPSE AND FOLLOW UP WITH PCP WITHIN ONE WEEK OF D/C. NO HOME MEDICATIONS TO BE SENT TO PHARMACY. Vital Signs Temperature 97 F L 06/29/18 07:04 Pulse Rate 62 06/29/18 07:04 Respiratory Rate 18 06/29/18 07:04 Blood Pressure 123/85 06/29/18 07:04 O2 Sat by Pulse Oximetry (%)
[2018-06-29] MEDS: NICOTINE 21 MG/24 HOURS TOPICAL PATCH TD SCH (09:59)
[2018-06-29] MEDS: PRENATAL VITAMINS W/ FOLIC ACID TABLET (FP) PO SCH (09:59)
[2018-06-29] MEDS: SILVER SULFADIAZINE 1% TOP CREAM 50 GM JAR TP SCH (10:00)
[2018-06-30] MEDS ORDERED: METHADONE 40 MG, METHADONE 30 MG PO SCH (06:00)
== END 2018-06-29 11:20 | disposition home or self-care (01) | DRG 772 ==
LOC: YASAS 14:08 → Y3W 14:09
PROVIDERS: ADMIT Neuromusculoskeletal Medicine & OMM; ATTEND Neuromusculoskeletal Medicine & OMM
PROC: HZ42ZZZ Group Counseling for Substance Abuse Treatment, Cognitive-Behavioral (ICD-10-PCS; principal; 2018-06-15)
DX: F10.20 Alcohol dependence, uncomplicated (principal); F12.20 Cannabis dependence, uncomplicated; F17.210 Nicotine dependence, cigarettes, uncomplicated; K13.70 Unspecified lesions of oral mucosa; Z89.412 Acquired absence of left great toe; R63.4 Abnormal weight loss; Z68.20 Body mass index [BMI] 20.0-20.9, adult; Z88.0 Allergy status to penicillin

== ENCOUNTER 2018-09-15 12:24 | Inpatient (IN) | payer OTHER ==
[2018-09-15 16:36] VITALS: BMI 19.0
--- NOTE | 2018-09-15 17:19 | HP ---
CIWA Score Nausea/Vomitin-Mild Nausea/No Vomiting Muscle Tremors: 3 Anxiety: 2 Agitation: 3 Paroxysmal Sweats: 2 Orientation: 0-Oriented Tacttile Disturbances: 0-None Auditory Disturbances: 0-None Visual Disturbances: 0-None Headache: 1-Very Mild CIWA-Ar Total Score: 12 - Admission Criteria OASAS Guidelines: Admission for Medically Managed Detox: Requires at least one of the followin. CIWA greater than 12 2. Seizures within the past 24 hours 3. Delirium tremens within the past 24 hours 4. Hallucinations within the past 24 hours 5. Acute intervention needed for co occurring medical disorder 6. Acute intervention needed for co occurring psychiatric disorder 7. Severe withdrawal that cannot be handled at a lower level of care (continued vomiting, continued diarrhea, abnormal vital signs) requiring intravenous medication and/or fluids 8. Patient presents the following: CIWA greater than 12 Admission Criteria Met: Admission criteria met Admission ROS [facility] Chief Complaint: here for alcohol detox, on MAT methadone. Uses marijuana 47 yo with no medical problems, no medications. Last here about 3 months ago for alcohol detox- and completed 2 weeks of rehab here. Pt states she relapsed with alcohol use soon after discharge. Pt states did not attend AA meetings or take any MAT for alcohol. She has no PCP. Pt is homeless, does not work. Sleeps at [facility] and sometimes Gets welfare money. Alcohol- 2 pints of alcohol- no h/o seizures/DT's MJ: $40/day DUR- no meds LUIZ- Utox- THC, BZO, MTD- denies BZO use Allergies/Adverse Reactions: Allergies Allergy/AdvReac Type Severity Reaction Status Date / Time Penicillins Allergy Severe Swelling Verified 06/11/18 12:58 - Ebola screening Have you traveled outside of the country in the last 21 days: No (N) Have you had contact with anyone from an Ebola affected area: No Do you have a fever: No Patient History - Patient Medical History Hx Anemia: No Hx Asthma: No Hx Chronic Obstructive Pulmonary Disease (COPD): No Hx Cancer: No Hx Cardiac Disorders: No Hx Congestive Heart Failure: No Hx Hypertension: No Hx Hypercholesterolemia: No Hx Pacemaker: No HX Cerebrovascular Accident: No Hx Seizures: No Hx Dementia: No Hx Diabetes: No Hx Gastrointestinal Disorders: No Hx Liver Disease: No Hx Genitourinary Disorders: No Hx Sexually Transmitted Disorders: No Hx Renal Disease (ESRD): No Hx Thyroid Disease: No Hx Human Immunodeficiency Virus (HIV): No (05/09 negative) Hx Hepatitis C: No Hx Depression: No Hx Suicide Attempt: No Hx Bipolar Disorder: No Hx Schizophrenia: No - Patient Surgical History Past Surgical History: Yes Hx Neurologic Surgery: No Hx Cataract Extraction: No Hx Cardiac Surgery: No Hx Lung Surgery: No Hx Breast Surgery: No Hx Breast Biopsy: No Hx Abdominal Surgery: No Hx Appendectomy: Yes (early ) Hx Cholecystectomy: No Hx Genitourinary Surgery: No Hx Section: No Hx Orthopedic Surgery: Yes (amputation left big toe in 1999) Hx Hysterectomy: No Anesthesia Reaction: No - PPD History Documented Results: Negative w/o proof Date: 01/02/15 - Reproductive History Patient is a Female of Child Bearing Age (11 -55 yrs old): Yes Last Menstrual Period: 02/13/16 Patient : No - Smoking Cessation Smoking history: Current every day smoker Have you smoked in the past 12 months: Yes Aproximately how many cigarettes per day: 2 Cigars Per Day: 0 Hx Chewing Tobacco Use: No Initiated information on smoking cessation: Yes 'Breaking Loose' booklet given: 09/15/18 - Substance & Tx. History Hx Alcohol Use: Yes Hx Substance Use: Yes Substance Use Type: Alcohol, Marijuana Hx Substance Use Treatment: Yes - Substances abused Alcohol Substance route: Oral Frequency: Daily Amount used: 2 pint of vodka Age of first use: 16 Date of last use: 09/15/18 Marijuana/Hashish Substance route: Smoking Frequency: Daily Amount used: $40/day Age of first use: 11 Date of last use: 09/15/18 Family Disease History - Family Disease History Family Disease History: Heart Disease: Father, Mother (), Sister ( ) Admission Physical Exam [facility] - Vital Signs Vital Signs: Vital Signs - 24 hr 09/15/18 16:28 Temperature 97 F L Pulse Rate 60 Respiratory 19 Rate Blood Pressure 104/78 - Physical General Appearance: Yes: Within Normal Limits, Cachetic, Thin, Tremorous HEENTM: Yes: Within Normal Limits, Normal Voice, LADAN, Other (mostly edentulous - has few bottom teeth) Respiratory: Yes: Within Normal Limits, Lungs Clear Neck: Yes: Within Normal Limits, No masses,lesions,Nodules Cardiology: Yes: Within Normal Limits, S1, S2, Gallop/S4 Abdominal: Yes: Within Normal Limits, Normal Bowel Sounds, Non Tender, Flat Genitourinary: Yes: Within Normal Limits Back: Yes: Within Normal Limits Musculoskeletal: Yes: Within Normal Limits Extremities: Yes: Within Normal Limits, Amputation Neurological: Yes: Within Normal Limits, director II-XII NML intact, Fully Oriented, Alert, Motor Strength 5/5, Normal Mood/Affect, Normal Response Integumentary: Yes: Within Normal Limits - Diagnostic (1) Alcohol dependence with withdrawal Current Visit: No Status: Chronic Qualifiers: Complication of substance-induced condition: uncomplicated Qualified Code(s ): F10.230 - Alcohol dependence with withdrawal, uncomplicated (2) Cannabis dependence, uncomplicated Current Visit: No Status: Chronic (3) Nicotine dependence Current Visit: No Status: Chronic Qualifiers: Nicotine product type: cigarettes Substance use status: uncomplicated Qualified Code(s): F17.210 - Nicotine dependence, cigarettes, uncomplicated Breathalyzer - Breathalyzer Breathalyzer: 0 Urine Drug Screen - Test Device Lot number: [id number] Expiration date: 08/19/19 - Control Is test valid?: Yes - Results Drug screen NEGATIVE: No Urine drug screen results: THC-Marijuana, MTD-Methadone, BZO-Benzodiazepines Inpatient Rehab Admission - Rehab Decision to Admit Inpatient rehab admission?: No
[2018-09-15] MEDS ORDERED: MAGNESIUM HYDROX 2400MG/30ML ORAL SUSPENSION 30 ML CUP PO PRN (17:27)
[2018-09-15] MEDS ORDERED: IBUPROFEN 400 MG TABLET (FP) PO PRN (17:27)
[2018-09-15] MEDS ORDERED: MENTHOL/PHENOL 1 EACH UD MM PRN (17:27)
[2018-09-15] MEDS ORDERED: MELATONIN 5 MG TABLETS PO PRN (17:27)
[2018-09-15] MEDS ORDERED: MAG HYDROX/AL HYDROX/SIMETH 30 ML UNIT-DOSE CUP PO PRN (17:27)
[2018-09-15] MEDS ORDERED: BISMUTH SUBSALICYLATE 524 MG/30 ML UD PO PRN (17:27)
[2018-09-15] MEDS ORDERED: METHOCARBAMOL 500 MG TABLET PO PRN (17:27)
[2018-09-15] MEDS ORDERED: hydrOXYzine PAMOATE 25 MG CAPSULE (FP) PO PRN (17:27)
[2018-09-15] MEDS ORDERED: chlordiazePOXIDE HCL 10 MG CAPSULE PO PRN (17:27)
[2018-09-15] MEDS ORDERED: ACETAMINOPHEN 325 MG TABLET (FP) PO PRN ×2 (17:27)
[2018-09-15] MEDS ORDERED: MAGNESIUM CITRATE 300 ML BOTTLE PO PRN (17:27)
[2018-09-15] MEDS: chlordiazePOXIDE HCL 25 MG CAPSULE PO SCH (20:49)
[2018-09-15] MEDS: THIAMINE HCL 100 MG TABLET (FP) PO SCH (22:16)
[2018-09-16] MEDS: chlordiazePOXIDE HCL 25 MG CAPSULE PO SCH ×2 (06:06→13:22)
[2018-09-16 07:13] LABS: HCG,QUALITATIVE URINE NEGATIVE
[2018-09-16 07:34] LABS: EPI CELLS 0.8 /HPF (0-5/HPF); HYALINE CASTS 1 /lpf (0-8); URINE APPEARANCE CLOUDY; URINE BACTERIA 6142.6 /hpf (NEGATIVE); URINE BILIRUBIN NEGATIVE (NEGATIVE); URINE COLOR YELLOW; URINE GLUCOSE (UA) NEGATIVE (NEGATIVE); URINE KETONE NEGATIVE (NEGATIVE); URINE LEUK ESTERASE 1+ (NEGATIVE); URINE NITRITE POSITIVE (NEGATIVE); URINE PROTEIN NEGATIVE (NEGATIVE); URINE RBC 1 /hpf (0-4); URINE WBC 2 /hpf (0-5)
[2018-09-16 08:19] LABS: URINE CRYSTALS URIC ACID -FEW /hpf
[2018-09-16] MEDS: NICOTINE 7 MG/24 HOURS TOPICAL PATCH TD SCH (09:35)
[2018-09-16] MEDS: PRENATAL VITAMINS W/ FOLIC ACID TABLET (FP) PO SCH (09:35)
[2018-09-16] MEDS ORDERED: METHADONE HCL 10 MG TABLET PO ONE (10:00)
[2018-09-16 10:12] LABS: HEMATOCRIT 39.4 % (32.4-45.2); HEMOGLOBIN 12.8 GM/dL (10.7-15.3); MCH 30.6 pg (25.7-33.7); MCHC 32.4 g/dl (32.0-36.0); MEAN CELL VOLUME 94.6 fl (80-96); MEAN PLT VOLUME 9.8 fl (7.5-11.1); PLATELET COUNT 190 K/MM3 (134-434); RBC 4.16 M/mm3 (3.60-5.2); RDW 15.2 % (11.6-15.6); WHITE BLOOD COUNT 6.2 K/mm3 (4.0-10.0)
[2018-09-16] MEDS ORDERED: METHADONE 40 MG, METHADONE 20 MG, METHADONE 5 MG PO ONE (10:30)
[2018-09-16 10:38] LABS: ALBUMIN 3.4 g/dl (3.4-5.0); BILIRUBIN,TOTAL 0.4 mg/dL (0.2-1); CALCIUM 9.3 mg/dL (8.5-10.1); CREATININE 0.9 mg/dL (0.55-1.3); POTASSIUM 4.1 mmol/L (3.5-5.1); TOT PROT 6.4 g/dl (6.4-8.2)
[2018-09-16] MEDS ORDERED: METHADONE HCL 40 MG DISPERSABLE TABLET ONE (10:43)
[2018-09-16] MEDS ORDERED: METHADONE HCL 10 MG TABLET ONE (10:43)
[2018-09-16] MEDS ORDERED: METHADONE HCL 5 MG TABLET ONE (10:44)
[2018-09-16] MEDS ORDERED: COLLOIDAL OATMEAL 1 BAR EACH TP PRN (10:54)
--- NOTE | 2018-09-16 11:58 | PN ---
[facility] CIWA - CIWA Score Nausea/Vomitin-Mild Nausea/No Vomiting Muscle Tremors: 3 Anxiety: 1-Mildly Anxious Agitation: 2 Paroxysmal Sweats: 1-Minimal Palms Moist Orientation: 1-Uncertain about Date Tacttile Disturbances: 1-Very Mild Itch/Numbness Auditory Disturbances: 0-None Visual Disturbances: 0-None Headache: 1-Very Mild CIWA-Ar Total Score: 11 [facility] Progress Note (SOAP) Subjective: doing better today had methadon 65 mg po Objective: 09/16/18 11:56 Vital Signs Temperature 97.2 F L 09/16/18 09:11 Pulse Rate 58 L 09/16/18 09:11 Respiratory Rate 16 09/16/18 09:11 Blood Pressure 124/80 09/16/18 09:11 O2 Sat by Pulse Oximetry (%) Laboratory Last Values WBC 6.2 K/mm3 (4.0-10.0) 09/16/18 07:00 RBC 4.16 M/mm3 (3.60-5.2) 09/16/18 07:00 Hgb 12.8 GM/dL (10.7-15.3) 09/16/18 07:00 Hct 39.4 % (32.4-45.2) 09/16/18 07:00 MCV 94.6 fl (80-96) 09/16/18 07:00 MCH 30.6 pg (25.7-33.7) 09/16/18 07:00 MCHC 32.4 g/dl (32.0-36.0) 09/16/18 07:00 RDW 15.2 % (11.6-15.6) 09/16/18 07:00 Plt Count 190 K/MM3 (134-434) 09/16/18 07:00 MPV 9.8 fl (7.5-11.1) 09/16/18 07:00 Sodium 143 mmol/L (136-145) 09/16/18 07:00 Potassium 4.1 mmol/L (3.5-5.1) 09/16/18 07:00 Chloride 107 mmol/L (98-107) 09/16/18 07:00 Carbon Dioxide 30 mmol/L (21-32) 09/16/18 07:00 Anion Gap 6 MMOL/L (8-16) L 09/16/18 07:00 BUN 14 mg/dL (7-18) 09/16/18 07:00 Creatinine 0.9 mg/dL (0.55-1.3) 09/16/18 07:00 Est GFR (CKD-EPI)AfAm 87.63 09/16/18 07:00 Est GFR (CKD-EPI)NonAf 75.61 09/16/18 07:00 Random Glucose 80 mg/dL (74-106) 09/16/18 07:00 Calcium 9.3 mg/dL (8.5-10.1) 09/16/18 07:00 Total Bilirubin 0.4 mg/dL (0.2-1) 09/16/18 07:00 AST 13 U/L (15-37) L 09/16/18 07:00 ALT 14 U/L (13-61) 09/16/18 07:00 Alkaline Phosphatase 76 U/L (45-117) 09/16/18 07:00 Total Protein 6.4 g/dl (6.4-8.2) 09/16/18 07:00 Albumin 3.4 g/dl (3.4-5.0) 09/16/18 07:00 Urine Color Yellow 09/15/18 18:42 Urine Appearance Cloudy 09/15/18 18:42 Urine pH 6.0 (5.0-8.0) 09/15/18 18:42 Ur Specific [place] 1.020 (1.010-1.035) 09/15/18 18:42 Urine Protein Negative (NEGATIVE) 09/15/18 18:42 Urine Glucose (UA) Negative (NEGATIVE) 09/15/18 18:42 Urine Ketones Negative (NEGATIVE) 09/15/18 18:42 Urine Blood 1+ (NEGATIVE) H 09/15/18 18:42 Urine Nitrite Positive (NEGATIVE) H 09/15/18 18:42 Urine Bilirubin Negative (NEGATIVE) 09/15/18 18:42 Urine Urobilinogen 1.0 mg/dL (0.2-1.0) 09/15/18 18:42 Ur Leukocyte Esterase 1+ (NEGATIVE) H 09/15/18 18:42 Urine WBC (Auto) 2 /hpf (0-5) 09/15/18 18:42 Urine RBC (Auto) 1 /hpf (0-4) 09/15/18 18:42 Urine Casts (Auto) 1 /lpf (0-8) 09/15/18 18:42 U Epithel Cells (Auto) 0.8 /HPF (0-5/HPF) 09/15/18 18:42 Urine Crystals (Auto) Uric acid -few /hpf 09/15/18 18:42 Urine Bacteria (Auto) 6142.6 /hpf (NEGATIVE) 09/15/18 18:42 Urine HCG, Qual Negative 09/15/18 18:42 POC Urine HCG, Qual Cancelled 09/15/18 18:42 lab noted uti Assessment: 09/16/18 12:00 ALCOHOL WITHDRAWAL SX UTI Plan: CONTINUE ALCOHOL DETOX BACTRIM DS BID
[2018-09-16] MEDS: SULFAMETHOXAZOLE/TRIMETHOPRIM 800MG/160MG D.S. TABLET PO SCH ×2 (13:00→22:21)
[2018-09-16] MEDS: chlordiazePOXIDE 5 MG CAPSULE PO SCH (20:35)
[2018-09-16] MEDS: THIAMINE HCL 100 MG TABLET (FP) PO SCH (22:21)
[2018-09-17] MEDS ORDERED: METHADONE HCL 10 MG TABLET ONE (04:13)
[2018-09-17] MEDS ORDERED: METHADONE HCL 40 MG DISPERSABLE TABLET ONE (04:13)
[2018-09-17] MEDS ORDERED: METHADONE HCL 5 MG TABLET ONE (04:13)
[2018-09-17] MEDS ORDERED: METHADONE HCL 10 MG TABLET PO SCH (06:00)
[2018-09-17] MEDS: chlordiazePOXIDE 5 MG CAPSULE PO SCH ×2 (06:20→13:45)
[2018-09-17] MEDS: METHADONE 40 MG, METHADONE 20 MG, METHADONE 5 MG PO SCH (06:20)
[2018-09-17] MEDS: NICOTINE 7 MG/24 HOURS TOPICAL PATCH TD SCH (10:09)
[2018-09-17] MEDS: SULFAMETHOXAZOLE/TRIMETHOPRIM 800MG/160MG D.S. TABLET PO SCH ×2 (10:09→22:17)
[2018-09-17] MEDS: PRENATAL VITAMINS W/ FOLIC ACID TABLET (FP) PO SCH (10:09)
[2018-09-17] MEDS: NICOTINE POLACRILEX 2 MG GUM BUC PRN (10:11)
--- NOTE | 2018-09-17 13:49 | PN ---
[facility] CIWA - CIWA Score Nausea/Vomitin Muscle Tremors: 2 Anxiety: 2 Agitation: 2 Paroxysmal Sweats: 1-Minimal Palms Moist Orientation: 1-Uncertain about Date Tacttile Disturbances: 0-None Auditory Disturbances: 0-None Visual Disturbances: 0-None Headache: 0-None Present CIWA-Ar Total Score: 10 S Progress Note (SOAP) Subjective: patient vomited x 1 from "open" librium requests to take librium "whole" without "open" patient tolerates "whole" librium well and no longer vomiting denies GI discomfort Objective: 09/17/18 13:56 Vital Signs Temperature 99.0 F 09/17/18 13:37 Pulse Rate 54 L 09/17/18 13:37 Respiratory Rate 18 09/17/18 13:37 Blood Pressure 133/79 09/17/18 13:37 O2 Sat by Pulse Oximetry (%) Laboratory Last Values WBC 6.2 K/mm3 (4.0-10.0) 09/16/18 07:00 RBC 4.16 M/mm3 (3.60-5.2) 09/16/18 07:00 Hgb 12.8 GM/dL (10.7-15.3) 09/16/18 07:00 Hct 39.4 % (32.4-45.2) 09/16/18 07:00 MCV 94.6 fl (80-96) 09/16/18 07:00 MCH 30.6 pg (25.7-33.7) 09/16/18 07:00 MCHC 32.4 g/dl (32.0-36.0) 09/16/18 07:00 RDW 15.2 % (11.6-15.6) 09/16/18 07:00 Plt Count 190 K/MM3 (134-434) 09/16/18 07:00 MPV 9.8 fl (7.5-11.1) 09/16/18 07:00 Sodium 143 mmol/L (136-145) 09/16/18 07:00 Potassium 4.1 mmol/L (3.5-5.1) 09/16/18 07:00 Chloride 107 mmol/L (98-107) 09/16/18 07:00 Carbon Dioxide 30 mmol/L (21-32) 09/16/18 07:00 Anion Gap 6 MMOL/L (8-16) L 09/16/18 07:00 BUN 14 mg/dL (7-18) 09/16/18 07:00 Creatinine 0.9 mg/dL (0.55-1.3) 09/16/18 07:00 Est GFR (CKD-EPI)AfAm 87.63 09/16/18 07:00 Est GFR (CKD-EPI)NonAf 75.61 09/16/18 07:00 Random Glucose 80 mg/dL (74-106) 09/16/18 07:00 Calcium 9.3 mg/dL (8.5-10.1) 09/16/18 07:00 Total Bilirubin 0.4 mg/dL (0.2-1) 09/16/18 07:00 AST 13 U/L (15-37) L 09/16/18 07:00 ALT 14 U/L (13-61) 09/16/18 07:00 Alkaline Phosphatase 76 U/L (45-117) 09/16/18 07:00 Total Protein 6.4 g/dl (6.4-8.2) 09/16/18 07:00 Albumin 3.4 g/dl (3.4-5.0) 09/16/18 07:00 Urine Color Yellow 09/15/18 18:42 Urine Appearance Cloudy 09/15/18 18:42 Urine pH 6.0 (5.0-8.0) 09/15/18 18:42 Ur Specific [place] 1.020 (1.010-1.035) 09/15/18 18:42 Urine Protein Negative (NEGATIVE) 09/15/18 18:42 Urine Glucose (UA) Negative (NEGATIVE) 09/15/18 18:42 Urine Ketones Negative (NEGATIVE) 09/15/18 18:42 Urine Blood 1+ (NEGATIVE) H 09/15/18 18:42 Urine Nitrite Positive (NEGATIVE) H 09/15/18 18:42 Urine Bilirubin Negative (NEGATIVE) 09/15/18 18:42 Urine Urobilinogen 1.0 mg/dL (0.2-1.0) 09/15/18 18:42 Ur Leukocyte Esterase 1+ (NEGATIVE) H 09/15/18 18:42 Urine WBC (Auto) 2 /hpf (0-5) 09/15/18 18:42 Urine RBC (Auto) 1 /hpf (0-4) 09/15/18 18:42 Urine Casts (Auto) 1 /lpf (0-8) 09/15/18 18:42 U Epithel Cells (Auto) 0.8 /HPF (0-5/HPF) 09/15/18 18:42 Urine Crystals (Auto) Uric acid -few /hpf 09/15/18 18:42 Urine Bacteria (Auto) 6142.6 /hpf (NEGATIVE) 09/15/18 18:42 Urine HCG, Qual Negative 09/15/18 18:42 POC Urine HCG, Qual Cancelled 09/15/18 18:42 RPR Titer Nonreactive (NONREACTIVE) 09/16/18 07:00 lab noted uti continue bactrim ds 09/17/18 13:57 Assessment: 09/17/18 13:57 alcohol withdrawal sx Plan: continue detox
[2018-09-17] MEDS ORDERED: chlordiazePOXIDE HCL 10 MG CAPSULE PO PRN (21:00)
[2018-09-17] MEDS: chlordiazePOXIDE HCL 10 MG CAPSULE PO SCH (22:16)
[2018-09-17] MEDS: THIAMINE HCL 100 MG TABLET (FP) PO SCH (22:17)
[2018-09-18] MEDS ORDERED: METHADONE HCL 10 MG TABLET ONE (04:32)
[2018-09-18] MEDS ORDERED: METHADONE HCL 40 MG DISPERSABLE TABLET ONE (04:33)
[2018-09-18] MEDS ORDERED: METHADONE HCL 5 MG TABLET ONE (04:33)
[2018-09-18] MEDS: METHADONE 40 MG, METHADONE 20 MG, METHADONE 5 MG PO SCH (05:15)
[2018-09-18] MEDS: chlordiazePOXIDE HCL 10 MG CAPSULE PO SCH ×2 (05:15→15:16)
[2018-09-18 09:43] VITALS: PULSE 58
[2018-09-18] MEDS: NICOTINE 7 MG/24 HOURS TOPICAL PATCH TD SCH (10:29)
[2018-09-18] MEDS: PRENATAL VITAMINS W/ FOLIC ACID TABLET (FP) PO SCH (10:29)
[2018-09-18] MEDS: SULFAMETHOXAZOLE/TRIMETHOPRIM 800MG/160MG D.S. TABLET PO SCH (10:29)
[2018-09-18] MEDS: NICOTINE POLACRILEX 2 MG GUM BUC PRN (10:30)
[2018-09-18 12:59] VITALS: BP 118/75; TEMP 98.4
--- NOTE | 2018-09-18 13:36 | PN ---
[facility] CIWA - CIWA Score Nausea/Vomitin-No Nausea/No Vomiting Muscle Tremors: 1-None Visible, but [place] Anxiety: 1-Mildly Anxious Agitation: 1-Slight > Activity Paroxysmal Sweats: No Perspiration Orientation: 0-Oriented Tacttile Disturbances: 0-None Auditory Disturbances: 0-None Visual Disturbances: 0-None Headache: 1-Very Mild CIWA-Ar Total Score: 4 [facility] Progress Note (SOAP) Subjective: alert,no com[plaint Objective: 09/18/18 13:35 Vital Signs Temperature 98.4 F 09/18/18 12:59 Pulse Rate 58 L 09/18/18 12:59 Respiratory Rate 16 09/18/18 12:59 Blood Pressure 118/75 09/18/18 12:59 O2 Sat by Pulse Oximetry (%) Assessment: 09/18/18 13:35 detox completed,no withdrawal symptom Plan: stable to go to rehab today,discharge from detox
--- NOTE | 2018-09-18 13:39 | DS ---
[facility] Detox Discharge Summary Admission Date: 09/15/18 Discharge Date: 09/18/18 - History Present History: Alcohol Dependence, Cannabis Dependence, MMTP Pertinent Past History: mmtp nicotine dependence - Physical Exam Results Vital Signs: Vital Signs Temperature 98.4 F 09/18/18 12:59 Pulse Rate 58 L 09/18/18 12:59 Respiratory Rate 16 09/18/18 12:59 Blood Pressure 118/75 09/18/18 12:59 O2 Sat by Pulse Oximetry (%) Pertinent Admission Physical Exam Findings: withdrawal signs and symptom Vital Signs Temperature 98.4 F 09/18/18 12:59 Pulse Rate 58 L 09/18/18 12:59 Respiratory Rate 16 09/18/18 12:59 Blood Pressure 118/75 09/18/18 12:59 O2 Sat by Pulse Oximetry (%) Laboratory Last Values WBC 6.2 K/mm3 (4.0-10.0) 09/16/18 07:00 RBC 4.16 M/mm3 (3.60-5.2) 09/16/18 07:00 Hgb 12.8 GM/dL (10.7-15.3) 09/16/18 07:00 Hct 39.4 % (32.4-45.2) 09/16/18 07:00 MCV 94.6 fl (80-96) 09/16/18 07:00 MCH 30.6 pg (25.7-33.7) 09/16/18 07:00 MCHC 32.4 g/dl (32.0-36.0) 09/16/18 07:00 RDW 15.2 % (11.6-15.6) 09/16/18 07:00 Plt Count 190 K/MM3 (134-434) 09/16/18 07:00 MPV 9.8 fl (7.5-11.1) 09/16/18 07:00 Sodium 143 mmol/L (136-145) 09/16/18 07:00 Potassium 4.1 mmol/L (3.5-5.1) 09/16/18 07:00 Chloride 107 mmol/L (98-107) 09/16/18 07:00 Carbon Dioxide 30 mmol/L (21-32) 09/16/18 07:00 Anion Gap 6 MMOL/L (8-16) L 09/16/18 07:00 BUN 14 mg/dL (7-18) 09/16/18 07:00 Creatinine 0.9 mg/dL (0.55-1.3) 09/16/18 07:00 Est GFR (CKD-EPI)AfAm 87.63 09/16/18 07:00 Est GFR (CKD-EPI)NonAf 75.61 09/16/18 07:00 Random Glucose 80 mg/dL (74-106) 09/16/18 07:00 Calcium 9.3 mg/dL (8.5-10.1) 09/16/18 07:00 Total Bilirubin 0.4 mg/dL (0.2-1) 09/16/18 07:00 AST 13 U/L (15-37) L 09/16/18 07:00 ALT 14 U/L (13-61) 09/16/18 07:00 Alkaline Phosphatase 76 U/L (45-117) 09/16/18 07:00 Total Protein 6.4 g/dl (6.4-8.2) 09/16/18 07:00 Albumin 3.4 g/dl (3.4-5.0) 09/16/18 07:00 Urine Color Yellow 09/15/18 18:42 Urine Appearance Cloudy 09/15/18 18:42 Urine pH 6.0 (5.0-8.0) 09/15/18 18:42 Ur Specific [place] 1.020 (1.010-1.035) 09/15/18 18:42 Urine Protein Negative (NEGATIVE) 09/15/18 18:42 Urine Glucose (UA) Negative (NEGATIVE) 09/15/18 18:42 Urine Ketones Negative (NEGATIVE) 09/15/18 18:42 Urine Blood 1+ (NEGATIVE) H 09/15/18 18:42 Urine Nitrite Positive (NEGATIVE) H 09/15/18 18:42 Urine Bilirubin Negative (NEGATIVE) 09/15/18 18:42 Urine Urobilinogen 1.0 mg/dL (0.2-1.0) 09/15/18 18:42 Ur Leukocyte Esterase 1+ (NEGATIVE) H 09/15/18 18:42 Urine WBC (Auto) 2 /hpf (0-5) 09/15/18 18:42 Urine RBC (Auto) 1 /hpf (0-4) 09/15/18 18:42 Urine Casts (Auto) 1 /lpf (0-8) 09/15/18 18:42 U Epithel Cells (Auto) 0.8 /HPF (0-5/HPF) 09/15/18 18:42 Urine Crystals (Auto) Uric acid -few /hpf 09/15/18 18:42 Urine Bacteria (Auto) 6142.6 /hpf (NEGATIVE) 09/15/18 18:42 Urine HCG, Qual Negative 09/15/18 18:42 POC Urine HCG, Qual Cancelled 09/15/18 18:42 RPR Titer Nonreactive (NONREACTIVE) 09/16/18 07:00 - Treatment Hospital Course: Detox Protocol Followed, Detoxed Safely, Responded well, Discharged Condition Good, Rehab Referral Accepted Patient has Accept[facility] - Medication Discharge Medications: Ambulatory Orders NK [No Known Home Medication] 06/11/18 - AMA Did Patient Leave Against Medical Advice: No
[2018-09-19] MEDS ORDERED: chlordiazePOXIDE HCL 10 MG CAPSULE PO SCH (06:00)
== END 2018-09-18 14:16 | disposition other institution (70) | DRG 773 ==
LOC: YASAS 12:24 → Y3N 17:38
PROVIDERS: ADMIT Surgery; ATTEND Surgery
PROC: HZ2ZZZZ Detoxification Services for Substance Abuse Treatment (ICD-10-PCS; principal; 2018-09-15)
DX: F10.230 Alcohol dependence with withdrawal, uncomplicated (principal); F11.20 Opioid dependence, uncomplicated; F12.20 Cannabis dependence, uncomplicated; F17.210 Nicotine dependence, cigarettes, uncomplicated; N39.0 Urinary tract infection, site not specified; Z89.412 Acquired absence of left great toe
CPT/HCPCS: 36415; 80053; 81003; 84703; 85027; 86593

== ENCOUNTER 2018-09-18 13:13 | Inpatient (IN) | payer OTHER ==
[2018-09-18 14:47] VITALS: PULSE 52
[2018-09-18] MEDS ORDERED: guaiFENesin 200 MG/10 ML 10 ML UNIT-DOSE CUPS PO PRN (15:11)
[2018-09-18] MEDS ORDERED: IBUPROFEN 400 MG TABLET (FP) PO PRN (15:11)
[2018-09-18] MEDS ORDERED: MAG HYDROX/AL HYDROX/SIMETH 30 ML UNIT-DOSE CUP PO PRN (15:11)
[2018-09-18] MEDS ORDERED: ACETAMINOPHEN 325 MG TABLET (FP) PO PRN (15:11)
[2018-09-18] MEDS ORDERED: hydrOXYzine PAMOATE 50 MG CAPSULE (FP) PO PRN (15:11)
[2018-09-18] MEDS ORDERED: MENTHOL/PHENOL 1 EACH UD MM PRN (15:11)
[2018-09-18] MEDS ORDERED: MAGNESIUM HYDROX 2400MG/30ML ORAL SUSPENSION 30 ML CUP PO PRN (15:11)
[2018-09-18] MEDS ORDERED: LOPERAMIDE HCL 2 MG CAPSULE PO PRN (15:11)
[2018-09-18] MEDS ORDERED: MAGNESIUM CITRATE 300 ML BOTTLE PO PRN (15:11)
[2018-09-18] MEDS ORDERED: P-EPHED 60MG/TRIPROLIDI 2.5MG TABLET PO PRN (15:11)
--- NOTE | 2018-09-18 15:15 | HP ---
[facility] Rehab Assess/Revision - Admission History Admitted to Rehab from: [facility] Date of Admission to Rehab: 09/18/18 - Vital signs Vital Signs: Vital Signs Period Temp Pulse Resp BP Sys/[place] Pulse Ox Last 24 Hr 96.3 F 52 16 121/69 - Findings Detox History & Physical reviewed: Yes Concur with findings: Yes Comments/Additional Findings: for rehab as protocol Inpatient Rehab Admission - Rehab Decision to Admit Inpatient rehab admission?: Yes - Initial Determination Are CD services needed?: Yes Free of communicable disease: Yes Not in need of hospitalization: Yes - Rehab Admission Criteria Previous failed treatment: Yes Poor recovery environment: Yes Comorbidities: Yes Lacks judgement: No Patient is meeting Inpatient Rehab admission criteria:: Yes
--- NOTE | 2018-09-18 15:47 | PN ---
[facility] Progress Note Note: PT REQUESTING TO SEE THE PSYCHIATRIST BECAUSE REPORTS TO NURSE NOW THAT SHE TAKES MEDICATION FOR DEPRESSION. Vital Signs 09/18/18 14:46 Temperature 96.3 F L Pulse Rate 52 L Respiratory 16 Rate Blood Pressure 121/69 TO FOLLOW UP WITH PSYCH CONSULT.
[2018-09-18] MEDS ORDERED: THIAMINE HCL 100 MG TABLET (FP) PO SCH (22:00)
[2018-09-18] MEDS ORDERED: MELATONIN 5 MG TABLETS PO PRN (22:00)
[2018-09-19] MEDS ORDERED: METHADONE HCL 10 MG TABLET PO SCH (06:00)
[2018-09-19] MEDS ORDERED: METHADONE 40 MG, METHADONE 20 MG, METHADONE 5 MG PO SCH (06:00)
[2018-09-19] MEDS ORDERED: METHADONE HCL 5 MG TABLET ONE (06:05)
[2018-09-19] MEDS ORDERED: METHADONE HCL 10 MG TABLET ONE (06:05)
[2018-09-19] MEDS ORDERED: METHADONE HCL 40 MG DISPERSABLE TABLET ONE (06:05)
[2018-09-19 07:15] VITALS: BP 100/72; TEMP 97.2
--- NOTE | 2018-09-19 09:46 | CONSULT ---
[facility] Psychiatric Consult - Data Date of interview: 09/19/18 Admission source: [facility] Identifying data: Patient is a 47 year old single female, mother of four, unemployed, and homeless. This is one of multiple admissions for patient. Patient admitted to rehab for alcohol and cannabis dependence. Substance Abuse History: Smoking Cessation. Smoking history: Current every day smoker. Have you smoked in the past 12 months: Yes. Aproximately how many cigarettes per day: 2. Cigars Per Day: 0. Hx Chewing Tobacco Use: No. Initiated information on smoking cessation: Yes. 'Breaking Loose' booklet given : 09/15/18. - Substance & Tx. History. Hx Alcohol Use: Yes. Hx Substance Use : Yes. Substance Use Type: Alcohol, Marijuana. Hx Substance Use Treatment: Yes. - Substances abused. Alcohol. Substance route: Oral. Frequency: Daily. Amount used: 2 pint of vodka. Age of first use: 16. Date of last use: 09/15/18. Marijuana/Hashish. Substance route: Smoking. Frequency: Daily. Amount used: $40/day. Age of first use: 11. Date of last use: 09/15/18 Medical History: Appendectomy, amputation left big toe in 1999 Psychiatric History: Ms. Salinas reports one psychiatric hospitalization in [facility] in 2014 for depression. She was treated with Lexapro 10mg daily which she states was effective. Patient last accepted lexapro in 2016 while in rehab in 2016. Patient reports noncompliance to medications and psychiatric treatment because of her drug use. At present she reports feeling sad, depressed , and anxious. Physical/Sexual Abuse/Trauma History: denies. Mental Status Exam - Mental Status Exam Alert and Oriented to: Time, Place, Person Cognitive Function: Good Patient Appearance: Well Groomed Mood: Sad Affect: Mood Congruent Patient Behavior: Appropriate, Cooperative Speech Pattern: Appropriate Voice Loudness: Moderately Soft/Quiet Thought Process: Goal Oriented Thought Disorder: Not Present Hallucinations: Denies Suicidal Ideation: Denies Homicidal Ideation: Denies Insight/Judgement: Poor Sleep: Fair Appetite: Fair Muscle strength/Tone: Normal Gait/Station: Normal Psychiatric Findings - Problem List ([place] 1, 2,3) (1) Substance induced mood disorder Current Visit: Yes Status: Acute (2) Cannabis dependence, uncomplicated Current Visit: Yes Status: Chronic (3) Alcohol dependence Current Visit: Yes Status: Acute - Initial Treatment Plan Initial Treatment Plan: Psychoeducation provided. Detoxification in progress. Will order Lexapro 5mg daily. Benefits and side effects discussed. Verbal consent given.
[2018-09-19] MEDS ORDERED: PRENATAL VITAMINS W/ FOLIC ACID TABLET (FP) PO SCH (10:00)
[2018-09-19] MEDS ORDERED: ESCITALOPRAM OXALATE 10 MG TABLET (FP) PO SCH (10:00)
--- NOTE | 2018-09-19 15:34 | PN ---
[facility] Progress Note Note: [facility] *LIVE* Discharge Summary Patient Name: TONYA SALTER Date of : 68 Patient Status: Inpatient Attending Provider: Lisseth Douglas Date: 09/19/18 15:31 Initialization Date: 09/19/18 15:31 [facility] Detox Discharge Summary Admission Date: 09/18/18 Discharge Date: 09/19/18 - History Present History: Alcohol Dependence, Cannabis Dependence, Cocaine Dependence, MMTP Pertinent Past History: Illicit drug use, completed detox and rehab 3 months ago - Physical Exam Results Vital Signs: Vital Signs Temperature 97.2 F L 09/19/18 07:14 Pulse Rate 52 L 09/19/18 07:14 Respiratory Rate 18 09/19/18 07:14 Blood Pressure 100/72 09/19/18 07:14 O2 Sat by Pulse Oximetry (%) - Medication Discharge Medications: Ambulatory Orders NK [No Known Home Medication] 06/11/18 - AMA Did Patient Leave Against Medical Advice: Yes
== END 2018-09-19 15:05 | disposition home or self-care (01) | DRG 772 ==
LOC: YASAS 13:13 → Y3E 13:14
PROVIDERS: ADMIT Neuromusculoskeletal Medicine & OMM; ATTEND Neuromusculoskeletal Medicine & OMM
PROC: HZ42ZZZ Group Counseling for Substance Abuse Treatment, Cognitive-Behavioral (ICD-10-PCS; principal; 2018-09-18)
DX: F10.20 Alcohol dependence, uncomplicated (principal); F11.20 Opioid dependence, uncomplicated; F12.20 Cannabis dependence, uncomplicated; F17.210 Nicotine dependence, cigarettes, uncomplicated; Z89.412 Acquired absence of left great toe

== ENCOUNTER 2019-05-19 15:00 | Inpatient (IN) | payer OTHER ==
[2019-05-19 17:56] VITALS: BMI 18.3
--- NOTE | 2019-05-19 19:56 | HP ---
"CIWA Score Nausea/Vomitin-No Nausea/No Vomiting Muscle Tremors: None Anxiety: 2 Agitation: 4-Moderately Restless Paroxysmal Sweats: 2 Orientation: 0-Oriented Tacttile Disturbances: 0-None Auditory Disturbances: 0-None Visual Disturbances: 2-Mild Sensitivity Headache: 0-None Present CIWA-Ar Total Score: 10 - Admission Criteria OASAS Guidelines: Admission for Medically Managed Detox: Requires at least one of the followin. CIWA greater than 12 2. Seizures within the past 24 hours 3. Delirium tremens within the past 24 hours 4. Hallucinations within the past 24 hours 5. Acute intervention needed for co occurring medical disorder 6. Acute intervention needed for co occurring psychiatric disorder 7. Severe withdrawal that cannot be handled at a lower level of care (continued vomiting, continued diarrhea, abnormal vital signs) requiring intravenous medication and/or fluids 8. Admitting History and Physical - Past Medical History ...LMP: 02/13/16 - Smoking History Smoking history: Current every day smoker Have you smoked in the past 12 months: Yes Aproximately how many cigarettes per day: 2 - Alcohol/Substance Use Hx Alcohol Use: Yes Admission [facility] Allergies/Adverse Reactions: Allergies Allergy/AdvReac Type Severity Reaction Status Date / Time Penicillins Allergy Severe Swelling Verified 05/19/19 17:42 History of Present Illness: Search Terms: landon borja, 1970 Search Date: 05/19/2019 07:55:24 PM The Drug Utilization Report below displays all of the controlled substance prescriptions, if any, that your patient has filled in the last twelve months. The information displayed on this report is compiled from pharmacy submissions to the Department, and accurately reflects the information as submitted by the pharmacies. This report was requested by: Lisseth Douglas | Reference #: [id number] There are no results for the search terms that you entered. 48 y.o. female here requesting detox from etoh use , claims 3-4 beers /day x 5 d/week denies blackouts or seizures , denies tremors. On MMTP , unverified , pt states she went today . PMHx ; denies denies Si / HI Exam Limitations: No Limitations - Review of Systems Constitutional: Loss of Appetite EENT: reports: Other (missing teeth) Respiratory: reports: No Symptoms reported Cardiac: reports: No Symptoms Reported GI: reports: Poor Appetite : reports: No Symptoms Reported Musculoskeletal: reports: No Symptoms Reported Integumentary: reports: Dryness Neuro: reports: No Symptoms reported Endocrine: reports: No Symptoms Reported Hematology: reports: No Symptoms Reported Psychiatric: reports: Orientated x3, Agitated Patient History - Patient Medical History Hx Anemia: No Hx Asthma: No Hx Chronic Obstructive Pulmonary Disease (COPD): No Hx Cancer: No Hx Cardiac Disorders: No Hx Congestive Heart Failure: No Hx Hypertension: No Hx Hypercholesterolemia: No Hx Pacemaker: No HX Cerebrovascular Accident: No Hx Seizures: No Hx Dementia: No Hx Diabetes: No Hx Gastrointestinal Disorders: No Hx Liver Disease: No Hx Genitourinary Disorders: No Hx Sexually Transmitted Disorders: No Hx Renal Disease (ESRD): No Hx Thyroid Disease: No Hx Human Immunodeficiency Virus (HIV): No (05/09 negative) Hx Hepatitis C: No Hx Depression: Yes Hx Suicide Attempt: Yes Hx Bipolar Disorder: No Hx Schizophrenia: No - Patient Surgical History Past Surgical History: Yes Hx Neurologic Surgery: No Hx Cataract Extraction: No Hx Cardiac Surgery: No Hx Lung Surgery: No Hx Breast Surgery: No Hx Breast Biopsy: No Hx Abdominal Surgery: No Hx Appendectomy: Yes (early ) Hx Cholecystectomy: No Hx Genitourinary Surgery: No Hx Section: No Hx Orthopedic Surgery: Yes (amputation left big toe in 1999) Hx Hysterectomy: No Anesthesia Reaction: No - PPD History Date: 09/17/18 Results: 0mm - Reproductive History Last Menstrual Period: 02/13/16 - Smoking Cessation Smoking history: Current every day smoker Have you smoked in the past 12 months: Yes Aproximately how many cigarettes per day: 2 Cigars Per Day: 0 Hx Chewing Tobacco Use: No Initiated information on smoking cessation: Yes 'Breaking Loose' booklet given: 05/19/19 - Substances abused Alcohol Substance route: Oral Frequency: 3-6 times per week Amount used: 3 to 4 beers 16 oz Age of first use: 18 Date of last use: 05/19/19 Marijuana/Hashish Substance route: Smoking Frequency: Daily Amount used: 7 to 8 blunts Age of first use: 12 Date of last use: 05/19/19 Admission Physical Exam BHS - Vital Signs Vital Signs: Vital Signs - 24 hr 05/19/19 05/19/19 17:39 18:21 Temperature 97.8 F 97.8 F Pulse Rate 62 62 Respiratory 16 16 Rate Blood Pressure 112/72 112/72 - Physical General Appearance: Yes: Thin, Anxious HEENTM: Yes: EOMI, Hearing grossly Normal, Normocephalic, Muffled/Hoarse Voice, Other (poor dentition , many missing teeth) Respiratory: Yes: Chest Non-Tender, Lungs Clear, Normal Breath Sounds, No Respiratory Distress, No Accessory Muscle Use Neck: Yes: No masses,lesions,Nodules, Trachea in good position Cardiology: Yes: Regular Rhythm, Regular Rate, S1, S2 Abdominal: Yes: Non Tender, Flat, Soft Musculoskeletal: Yes: Gait Steady Extremities: Yes: Normal Range of Motion, Non-Tender Neurological: Yes: Fully Oriented, Alert, Motor Strength 5/5 Integumentary: Yes: Dry, Warm - Diagnostic (1) Alcohol dependence Current Visit: Yes Status: Chronic Qualifiers: Substance use status: uncomplicated Qualified Code(s): F10.20 - Alcohol dependence, uncomplicated (2) Opioid dependence on agonist therapy Current Visit: Yes Status: Chronic Breathalyzer - Breathalyzer Breathalyzer: 0 Urine Drug Screen - Test Device Lot number: [id number] Expiration date: 03/15/21 - Control Is test valid?: Yes - Results Drug screen NEGATIVE: No Urine drug screen results: THC-Marijuana, MOP-Opiates, MTD-Methadone Inpatient Rehab Admission - Rehab Decision to Admit Inpatient rehab admission?: No"
[2019-05-19] MEDS ORDERED: diazePAM 5 MG TABLET PO PRN ×2 (20:15→20:17)
[2019-05-19] MEDS ORDERED: BISMUTH SUBSALICYLATE 524 MG/30 ML UD PO PRN (20:16)
[2019-05-19] MEDS ORDERED: MAGNESIUM HYDROX 2400MG/30ML ORAL SUSPENSION 30 ML CUP PO PRN (20:16)
[2019-05-19] MEDS ORDERED: NICOTINE POLACRILEX 2 MG GUM BUC PRN (20:16)
[2019-05-19] MEDS ORDERED: MAGNESIUM CITRATE 300 ML BOTTLE PO PRN (20:16)
[2019-05-19] MEDS ORDERED: IBUPROFEN 400 MG TABLET (FP) PO PRN (20:16)
[2019-05-19] MEDS ORDERED: ACETAMINOPHEN 325 MG TABLET (FP) PO PRN ×2 (20:16)
[2019-05-19] MEDS ORDERED: hydrOXYzine PAMOATE 25 MG CAPSULE (FP) PO PRN (20:16)
[2019-05-19] MEDS ORDERED: MENTHOL/PHENOL 1 EACH UD MM PRN (20:16)
[2019-05-19] MEDS ORDERED: MAG HYDROX/AL HYDROX/SIMETH 30 ML UNIT-DOSE CUP PO PRN (20:16)
[2019-05-19] MEDS: THIAMINE HCL 100 MG TABLET (FP) PO SCH (22:01)
--- NOTE | 2019-05-20 09:01 | PN ---
S CIWA - CIWA Score Nausea/Vomitin-Mild Nausea/No Vomiting Muscle Tremors: 2 Anxiety: 3 Agitation: 2 Paroxysmal Sweats: 2 Orientation: 0-Oriented Tacttile Disturbances: 0-None Auditory Disturbances: 0-None Visual Disturbances: 1-Very Mild Sensitivity Headache: 1-Very Mild CIWA-Ar Total Score: 12 BHS Progress Note (SOAP) Subjective: 48 years old female admitted on 05/19/19 for alcohol withdrawal sx management treating with valium prn patient presents ciwa 12 today and waiting for methadone 65mg today begin valium regiment reports feeling ok today ate breakfast in day room social with peers in day room Objective: 05/20/19 09:00 Vital Signs Temperature 98.1 F 05/20/19 04:00 Pulse Rate 62 05/20/19 04:00 Respiratory Rate 16 05/20/19 04:00 Blood Pressure 153/96 05/20/19 04:00 O2 Sat by Pulse Oximetry (%) 05/20/19 09:01 lab pending Assessment: 05/20/19 09:01 alcohol withdrawal Plan: valium regiment
[2019-05-20] MEDS ORDERED: METHADONE HCL 10 MG TABLET ONE (09:44)
[2019-05-20] MEDS ORDERED: METHADONE HCL 40 MG DISPERSABLE TABLET ONE (09:45)
[2019-05-20] MEDS ORDERED: METHADONE HCL 5 MG TABLET ONE (09:45)
[2019-05-20] MEDS: PRENATAL VITAMINS W/ FOLIC ACID TABLET (FP) PO SCH (09:59)
[2019-05-20] MEDS ORDERED: METHADONE 40 MG, METHADONE 20 MG, METHADONE 5 MG PO ONE (10:00)
[2019-05-20] MEDS ORDERED: METHADONE HCL 10 MG TABLET PO ONE (10:00)
[2019-05-20 10:12] LABS: HEMATOCRIT 36.6 % (32.4-45.2); MCH 30.2 pg (25.7-33.7); MCHC 32.9 g/dl (32.0-36.0); MEAN CELL VOLUME 91.9 fl (80-96); PLATELET COUNT 321 K/MM3 (134-434); RBC 3.98 M/mm3 (3.60-5.2); RDW 14.2 % (11.6-15.6); WHITE BLOOD COUNT 8.5 K/mm3 (4.0-10.0)
[2019-05-20 10:38] LABS: ALBUMIN 2.8 g/dl (3.4-5.0); BILIRUBIN,TOTAL 0.3 mg/dL (0.2-1); CALCIUM 8.8 mg/dL (8.5-10.1); CREATININE 0.7 mg/dL (0.55-1.3); POTASSIUM 4.4 mmol/L (3.5-5.1); TOT PROT 6.1 g/dl (6.4-8.2)
[2019-05-20] MEDS: diazePAM 5 MG TABLET PO SCH (17:40)
[2019-05-20] MEDS: THIAMINE HCL 100 MG TABLET (FP) PO SCH (22:12)
[2019-05-20] MEDS: MELATONIN 5 MG TABLETS PO PRN (22:12)
[2019-05-21] MEDS ORDERED: METHADONE HCL 40 MG DISPERSABLE TABLET ONE (04:11)
[2019-05-21] MEDS ORDERED: METHADONE HCL 10 MG TABLET ONE (04:11)
[2019-05-21] MEDS ORDERED: METHADONE HCL 5 MG TABLET ONE (04:11)
[2019-05-21] MEDS ORDERED: METHADONE HCL 10 MG TABLET PO SCH (06:00)
[2019-05-21] MEDS: METHADONE 40 MG, METHADONE 20 MG, METHADONE 5 MG PO SCH (06:03)
[2019-05-21] MEDS: diazePAM 5 MG TABLET PO SCH ×3 (06:31→17:02)
[2019-05-21] MEDS: PRENATAL VITAMINS W/ FOLIC ACID TABLET (FP) PO SCH (10:05)
--- NOTE | 2019-05-21 12:09 | PN ---
[facility] CIWA - CIWA Score Nausea/Vomitin-No Nausea/No Vomiting Muscle Tremors: 1-None Visible, but [place] Anxiety: 0-No Anxiety, at Ease Agitation: 0-Normal Activity Paroxysmal Sweats: No Perspiration Orientation: 0-Oriented Tacttile Disturbances: 0-None Auditory Disturbances: 0-None Visual Disturbances: 0-None Headache: 0-None Present CIWA-Ar Total Score: 1 S Progress Note (SOAP) Subjective: Patient seen at bedside eating breakfast and a little sedated while eating her cereal with milk. Very minimal withdrawal symptoms. Objective: 05/21/19 12:06 Laboratory 05/20/19 05/20/19 05/20/19 08:00 08:00 08:00 WBC 8.5 K/mm3 K/mm3 (4.0-10.0) RBC 3.98 M/mm3 M/mm3 (3.60-5.2) Hgb 12.0 GM/dL GM/dL (10.7-15.3) Hct 36.6 % % (32.4-45.2) MCV 91.9 fl fl (80-96) MCH 30.2 pg pg (25.7-33.7) MCHC 32.9 g/dl g/dl (32.0-36.0) RDW 14.2 % % (11.6-15.6) Plt Count 321 K/MM3 D K/MM3 (134-434) MPV 9.0 fl fl (7.5-11.1) Sodium 144 mmol/L mmol/L (136-145) Potassium 4.4 mmol/L mmol/L (3.5-5.1) Chloride 109 mmol/L H mmol/L (98-107) Carbon Dioxide 29 mmol/L mmol/L (21-32) Anion Gap 6 MMOL/L L MMOL/L (8-16) BUN 12.0 mg/dL mg/dL (7-18) Creatinine 0.7 mg/dL mg/dL (0.55-1.3) Est GFR (CKD-EPI)AfAm 117.91 Est GFR (CKD-EPI)NonAf 101.74 Random Glucose 78 mg/dL mg/dL (74-106) Calcium 8.8 mg/dL mg/dL (8.5-10.1) Total Bilirubin 0.3 mg/dL mg/dL (0.2-1) AST 20 U/L U/L (15-37) ALT 30 U/L U/L (13-61) Alkaline Phosphatase 72 U/L U/L (45-117) Total Protein 6.1 g/dl L g/dl (6.4-8.2) Albumin 2.8 g/dl L g/dl (3.4-5.0) RPR Titer Nonreactive (NONREACTIVE) Assessment: 05/21/19 12:07 1. Alcohol Dependence 2. Poor nutrition Plan: 1. Continue Valium detox protocol 2. Encourage hydration and proper nutritional diet while in detox. Noted abnormal labs due to poor nutrition. Dr. Gonzalez
--- NOTE | 2019-05-21 18:07 | PN ---
BHS Progress Note Note: pt requesting ensure Vital Signs - 24 hr 05/20/19 05/20/19 05/21/19 18:44 21:16 00:30 Temperature 97.6 F 98.0 F Pulse Rate 51 L 61 Respiratory 17 18 18 Rate Blood Pressure 133/74 119/81 05/21/19 05/21/19 05/21/19 07:34 07:43 09:40 Temperature 98.2 F 97.8 F Pulse Rate 61 58 L Respiratory 18 18 16 Rate Blood Pressure 149/94 131/87 05/21/19 05/21/19 12:36 16:33 Temperature 98.3 F 98.6 F Pulse Rate 59 L 58 L Respiratory 20 18 Rate Blood Pressure 126/86 130/90 P : ensure added bid .
[2019-05-21] MEDS: MELATONIN 5 MG TABLETS PO PRN (22:05)
[2019-05-21] MEDS: THIAMINE HCL 100 MG TABLET (FP) PO SCH (22:05)
[2019-05-22] MEDS: diazePAM 5 MG TABLET PO SCH ×3 (01:02→10:07)
[2019-05-22] MEDS ORDERED: METHADONE HCL 10 MG TABLET ONE (03:58)
[2019-05-22] MEDS ORDERED: METHADONE HCL 40 MG DISPERSABLE TABLET ONE (03:58)
[2019-05-22] MEDS ORDERED: METHADONE HCL 5 MG TABLET ONE (03:59)
[2019-05-22] MEDS: METHADONE 40 MG, METHADONE 20 MG, METHADONE 5 MG PO SCH (06:24)
[2019-05-22] MEDS: PRENATAL VITAMINS W/ FOLIC ACID TABLET (FP) PO SCH (10:07)
--- NOTE | 2019-05-22 13:24 | PN ---
S CIWA - CIWA Score Nausea/Vomitin-No Nausea/No Vomiting Muscle Tremors: None Anxiety: 2 Agitation: 0-Normal Activity Paroxysmal Sweats: 1-Minimal Palms Moist Orientation: 0-Oriented Tacttile Disturbances: 0-None Auditory Disturbances: 0-None Visual Disturbances: 0-None Headache: 0-None Present CIWA-Ar Total Score: 3 BHS Progress Note (SOAP) Subjective: c/o mild withdrawal symptoms. Objective: 05/22/19 13:23 Vital Signs 05/22/19 05/22/19 06:55 09:07 Temperature 98.3 F 97.9 F Pulse Rate 59 L 59 L Respiratory 16 16 Rate Blood Pressure 126/75 111/72 Laboratory Last Values WBC 8.5 K/mm3 (4.0-10.0) 05/20/19 08:00 RBC 3.98 M/mm3 (3.60-5.2) 05/20/19 08:00 Hgb 12.0 GM/dL (10.7-15.3) 05/20/19 08:00 Hct 36.6 % (32.4-45.2) 05/20/19 08:00 MCV 91.9 fl (80-96) 05/20/19 08:00 MCH 30.2 pg (25.7-33.7) 05/20/19 08:00 MCHC 32.9 g/dl (32.0-36.0) 05/20/19 08:00 RDW 14.2 % (11.6-15.6) 05/20/19 08:00 Plt Count 321 K/MM3 (134-434) D 05/20/19 08:00 MPV 9.0 fl (7.5-11.1) 05/20/19 08:00 Sodium 144 mmol/L (136-145) 05/20/19 08:00 Potassium 4.4 mmol/L (3.5-5.1) 05/20/19 08:00 Chloride 109 mmol/L (98-107) H 05/20/19 08:00 Carbon Dioxide 29 mmol/L (21-32) 05/20/19 08:00 Anion Gap 6 MMOL/L (8-16) L 05/20/19 08:00 BUN 12.0 mg/dL (7-18) 05/20/19 08:00 Creatinine 0.7 mg/dL (0.55-1.3) 05/20/19 08:00 Est GFR (CKD-EPI)AfAm 117.91 05/20/19 08:00 Est GFR (CKD-EPI)NonAf 101.74 05/20/19 08:00 Random Glucose 78 mg/dL (74-106) 05/20/19 08:00 Calcium 8.8 mg/dL (8.5-10.1) 05/20/19 08:00 Total Bilirubin 0.3 mg/dL (0.2-1) 05/20/19 08:00 AST 20 U/L (15-37) 05/20/19 08:00 ALT 30 U/L (13-61) 05/20/19 08:00 Alkaline Phosphatase 72 U/L (45-117) 05/20/19 08:00 Total Protein 6.1 g/dl (6.4-8.2) L 05/20/19 08:00 Albumin 2.8 g/dl (3.4-5.0) L 05/20/19 08:00 RPR Titer Nonreactive (NONREACTIVE) 05/20/19 08:00 Labs noted. Assessment: 05/22/19 13:23 AOX3, in no acute respiratory distress. Full ROM, ambulating in the unit. Mild Withdrawal symptoms. For d/c tomorrow. Plan: continue detox. D/c in AM.
[2019-05-22] MEDS: MELATONIN 5 MG TABLETS PO PRN (22:23)
[2019-05-22] MEDS: THIAMINE HCL 100 MG TABLET (FP) PO SCH (22:23)
[2019-05-23] MEDS ORDERED: METHADONE HCL 10 MG TABLET ONE (04:47)
[2019-05-23] MEDS ORDERED: METHADONE HCL 40 MG DISPERSABLE TABLET ONE (04:47)
[2019-05-23] MEDS ORDERED: METHADONE HCL 5 MG TABLET ONE (04:48)
[2019-05-23] MEDS ORDERED: diazePAM 5 MG TABLET PO ONE (05:00)
[2019-05-23] MEDS: METHADONE 40 MG, METHADONE 20 MG, METHADONE 5 MG PO SCH (05:25)
--- NOTE | 2019-05-23 09:37 | DS ---
[facility] Detox Discharge Summary Admission Date: 05/19/19 Discharge Date: 05/23/19 - History Present History: Alcohol Dependence Additional Comments: 48 years old female admitted on 05/19/19 for alcohol withdrawal sx management treated wt valium detox regiment patient has completed the valium regimen and tolerated well alert oriented x 3 respiratory clear lungs bilaterally on auscultation extremities full range of motion - Physical Exam Results Vital Signs: Vital Signs Temperature 98.2 F 05/23/19 06:35 Pulse Rate 81 05/23/19 06:35 Respiratory Rate 16 05/23/19 06:35 Blood Pressure 114/74 05/23/19 06:35 O2 Sat by Pulse Oximetry (%) Pertinent Admission Physical Exam Findings: alcohol withdrawal Laboratory Last Values WBC 8.5 K/mm3 (4.0-10.0) 05/20/19 08:00 RBC 3.98 M/mm3 (3.60-5.2) 05/20/19 08:00 Hgb 12.0 GM/dL (10.7-15.3) 05/20/19 08:00 Hct 36.6 % (32.4-45.2) 05/20/19 08:00 MCV 91.9 fl (80-96) 05/20/19 08:00 MCH 30.2 pg (25.7-33.7) 05/20/19 08:00 MCHC 32.9 g/dl (32.0-36.0) 05/20/19 08:00 RDW 14.2 % (11.6-15.6) 05/20/19 08:00 Plt Count 321 K/MM3 (134-434) D 05/20/19 08:00 MPV 9.0 fl (7.5-11.1) 05/20/19 08:00 Sodium 144 mmol/L (136-145) 05/20/19 08:00 Potassium 4.4 mmol/L (3.5-5.1) 05/20/19 08:00 Chloride 109 mmol/L (98-107) H 05/20/19 08:00 Carbon Dioxide 29 mmol/L (21-32) 05/20/19 08:00 Anion Gap 6 MMOL/L (8-16) L 05/20/19 08:00 BUN 12.0 mg/dL (7-18) 05/20/19 08:00 Creatinine 0.7 mg/dL (0.55-1.3) 05/20/19 08:00 Est GFR (CKD-EPI)AfAm 117.91 05/20/19 08:00 Est GFR (CKD-EPI)NonAf 101.74 05/20/19 08:00 Random Glucose 78 mg/dL (74-106) 05/20/19 08:00 Calcium 8.8 mg/dL (8.5-10.1) 05/20/19 08:00 Total Bilirubin 0.3 mg/dL (0.2-1) 05/20/19 08:00 AST 20 U/L (15-37) 05/20/19 08:00 ALT 30 U/L (13-61) 05/20/19 08:00 Alkaline Phosphatase 72 U/L (45-117) 05/20/19 08:00 Total Protein 6.1 g/dl (6.4-8.2) L 05/20/19 08:00 Albumin 2.8 g/dl (3.4-5.0) L 05/20/19 08:00 RPR Titer Nonreactive (NONREACTIVE) 05/20/19 08:00 lab noted - Treatment Hospital Course: Detox Protocol Followed, Detoxed Safely, Responded well, Discharged Condition Good, Rehab Referral Accepted Patient has Accepted [facility] - Medication Discharge Medications: Ambulatory Orders NK [No Known Home Medication] 06/11/18 - Diagnosis (1) Alcohol dependence, uncomplicated Status: Acute (2) Substance induced mood disorder Status: Suspected (3) Nicotine dependence Status: Acute Qualifiers: Nicotine product type: cigarettes Substance use status: in withdrawal Qualified Code(s): F17.213 - Nicotine dependence, cigarettes, with withdrawal (4) Weight loss Status: Suspected - AMA Did Patient Leave Against Medical Advice: No CIWA Score - CIWA Score Nausea/Vomitin-No Nausea/No Vomiting Muscle Tremors: None Anxiety: 1-Mildly Anxious Agitation: 0-Normal Activity Paroxysmal Sweats: No Perspiration Orientation: 0-Oriented Tacttile Disturbances: 0-None Auditory Disturbances: 0-None Visual Disturbances: 0-None Headache: 0-None Present CIWA-Ar Total Score: 1
[2019-05-23] MEDS: PRENATAL VITAMINS W/ FOLIC ACID TABLET (FP) PO SCH (10:08)
[2019-05-23 11:07] VITALS: BP 113/77; PULSE 68; TEMP 98.6
== END 2019-05-23 12:17 | disposition home or self-care (01) | DRG 773 ==
LOC: YASAS 15:00 → Y3N 20:51
PROVIDERS: ADMIT Allergy & Immunology; ATTEND Allergy & Immunology
PROC: HZ2ZZZZ Detoxification Services for Substance Abuse Treatment (ICD-10-PCS; principal; 2019-05-19)
DX: F10.230 Alcohol dependence with withdrawal, uncomplicated (principal); F11.20 Opioid dependence, uncomplicated; F12.20 Cannabis dependence, uncomplicated; F17.210 Nicotine dependence, cigarettes, uncomplicated; F19.24 Other psychoactive substance dependence with psychoactive substance-induced mood disorder; R63.4 Abnormal weight loss; E63.9 Nutritional deficiency, unspecified; Z89.412 Acquired absence of left great toe; Z88.0 Allergy status to penicillin; Z59.0 Homelessness
CPT/HCPCS: 36415; 80053; 85027; 86593

== ENCOUNTER 2019-05-24 15:14 | Inpatient (IN) | payer OTHER ==
[2019-05-24 18:09] VITALS: BMI 18.3
--- NOTE | 2019-05-24 19:36 | HP ---
CIWA Score - Admission Criteria OASAS Guidelines: Admission for Medically Managed Detox: Requires at least one of the followin. CIWA greater than 12 2. Seizures within the past 24 hours 3. Delirium tremens within the past 24 hours 4. Hallucinations within the past 24 hours 5. Acute intervention needed for co occurring medical disorder 6. Acute intervention needed for co occurring psychiatric disorder 7. Severe withdrawal that cannot be handled at a lower level of care (continued vomiting, continued diarrhea, abnormal vital signs) requiring intravenous medication and/or fluids 8. Admitting History and Physical - Past Medical History ...LMP: 02/13/16 - Smoking History Smoking history: Current every day smoker Have you smoked in the past 12 months: Yes Aproximately how many cigarettes per day: 2 - Alcohol/Substance Use Hx Alcohol Use: Yes Admission ROS BHS - HPI Chief Complaint: Seeking admission to Rehab. Allergies/Adverse Reactions: Allergies Allergy/AdvReac Type Severity Reaction Status Date / Time Penicillins Allergy Severe Swelling Verified 05/24/19 17:52 History of Present Illness: 48 years old female is seeking admission to Rehab. Patient denies medical history and reports psych. history of depression. She denies suicidal ideation at this time. She was in detox from 05/19/2019-05/23/2019, discharged home and came back today to start Rehab. Exam Limitations: No Limitations - Ebola screening Have you traveled outside of the country in the last 21 days: No Have you had contact with anyone from an Ebola affected area: No Do you have a fever: No - Review of Systems Constitutional: No Symptoms Reported EENT: reports: No Symptoms Reported Respiratory: reports: No Symptoms reported Cardiac: reports: No Symptoms Reported GI: reports: No Symptoms Reported : reports: No Symptoms Reported Musculoskeletal: reports: No Symptoms Reported Integumentary: reports: No Symptoms Reported Neuro: reports: No Symptoms reported Endocrine: reports: No Symptoms Reported Hematology: reports: No Symptoms Reported Psychiatric: reports: No Sypmtoms Reported, Mood/Affect Appropiate, Orientated x3 Other Systems: Reviewed and Negative Patient History - Patient Medical History Hx Anemia: No Hx Asthma: No Hx Chronic Obstructive Pulmonary Disease (COPD): No Hx Cancer: No Hx Cardiac Disorders: No Hx Congestive Heart Failure: No Hx Hypertension: No Hx Hypercholesterolemia: No Hx Pacemaker: No HX Cerebrovascular Accident: No Hx Seizures: No Hx Dementia: No Hx Diabetes: No Hx Gastrointestinal Disorders: No Hx Liver Disease: No Hx Genitourinary Disorders: No Hx Sexually Transmitted Disorders: No Hx Renal Disease (ESRD): No Hx Thyroid Disease: No Hx Human Immunodeficiency Virus (HIV): No (05/09 negative) Hx Hepatitis C: No Hx Depression: Yes Hx Suicide Attempt: No (Denies suicidal ideation at this time) Hx Bipolar Disorder: No Hx Schizophrenia: No - Patient Surgical History Past Surgical History: Yes Hx Neurologic Surgery: No Hx Cataract Extraction: No Hx Cardiac Surgery: No Hx Lung Surgery: No Hx Breast Surgery: No Hx Breast Biopsy: No Hx Abdominal Surgery: No Hx Appendectomy: Yes (early ) Hx Cholecystectomy: No Hx Genitourinary Surgery: No Hx Section: No Hx Orthopedic Surgery: Yes (amputation left big toe in 1999) Hx Hysterectomy: No Anesthesia Reaction: No - PPD History Previous Implant?: Yes Documented Results: Negative w/proof Implanted On Prior [facility] Admission?: Yes Date: 09/17/18 Results: 0mm PPD to be Administered?: No - Reproductive History Patient is a Female of Child Bearing Age (11 -55 yrs old): Yes Last Menstrual Period: 02/13/16 LMP comment: Menopausal - Smoking Cessation Smoking history: Current every day smoker Have you smoked in the past 12 months: Yes Aproximately how many cigarettes per day: 2 Cigars Per Day: 0 Hx Chewing Tobacco Use: No Initiated information on smoking cessation: Yes 'Breaking Loose' booklet given: 05/24/19 - Substance & Tx. History Hx Alcohol Use: Yes Hx Substance Use: Yes Substance Use Type: Alcohol, Marijuana Hx Substance Use Treatment: Yes ([facility]) - Substances abused Alcohol Substance route: Oral Frequency: Daily Amount used: 4 to 5 160z cans of beer Age of first use: 18 Date of last use: 05/19/19 Marijuana/Hashish Substance route: Oral Frequency: Daily Amount used: 4 to 5 blunts Age of first use: 12 Date of last use: 05/19/19 Admission Physical Exam BHS - Vital Signs Vital Signs: Vital Signs - 24 hr 05/24/19 05/24/19 17:51 18:07 Temperature 97.3 F L 97.3 F L Pulse Rate 89 89 Respiratory 16 16 Rate Blood Pressure 110/76 110/76 - Physical General Appearance: Yes: Within Normal Limits HEENTM: Yes: Within Normal Limits Respiratory: Yes: Lungs Clear, Normal Breath Sounds, No Respiratory Distress Neck: Yes: Within Normal Limits Breast: Yes: Breast Exam Deferred Cardiology: Yes: Regular Rhythm, Regular Rate Abdominal: Yes: Normal Bowel Sounds, Soft Genitourinary: Yes: Within Normal Limits Back: Yes: Normal Inspection Musculoskeletal: Yes: Within Normal Limits Extremities: Yes: Normal Inspection Neurological: Yes: Within Normal Limits, Alert, Normal Mood/Affect Integumentary: Yes: Warm Lymphatic: Yes: Within Normal Limits - Diagnostic (1) Cannabis dependence Current Visit: Yes Status: Chronic (2) Nicotine dependence Current Visit: Yes Status: Chronic Qualifiers: Nicotine product type: cigarettes Substance use status: uncomplicated Qualified Code(s): F17.210 - Nicotine dependence, cigarettes, uncomplicated (3) Alcohol dependence Current Visit: Yes Status: Chronic Qualifiers: Substance use status: uncomplicated Qualified Code(s): F10.20 - Alcohol dependence, uncomplicated (4) No natural teeth Current Visit: Yes Status: Chronic Cleared for Admission S - Detox or Rehab [facility] Level of Care: Observation Bed Claeared for Rehab Admission: Yes Breathalyzer - Breathalyzer Breathalyzer: 0 Urine Drug Screen - Test Device Lot number: [id number] Expiration date: 03/15/21 - Control Is test valid?: Yes - Results Drug screen NEGATIVE: No Urine drug screen results: THC-Marijuana, MTD-Methadone, BZO-Benzodiazepines Inpatient Rehab Admission - Rehab Decision to Admit Inpatient rehab admission?: Yes - Initial Determination Are CD services needed?: No Free of communicable disease: Yes Not in need of hospitalization: Yes - Rehab Admission Criteria Previous failed treatment: Yes Poor recovery environment: Yes Comorbidities: No Lacks judgement: No Patient is meeting Inpatient Rehab admission criteria:: Yes
[2019-05-24] MEDS ORDERED: guaiFENesin 200 MG/10 ML 10 ML UNIT-DOSE CUPS PO PRN (19:46)
[2019-05-24] MEDS ORDERED: IBUPROFEN 400 MG TABLET (FP) PO PRN (19:46)
[2019-05-24] MEDS ORDERED: MAG HYDROX/AL HYDROX/SIMETH 30 ML UNIT-DOSE CUP PO PRN (19:46)
[2019-05-24] MEDS ORDERED: NICOTINE POLACRILEX 2 MG GUM BUC PRN (19:46)
[2019-05-24] MEDS ORDERED: MAGNESIUM CITRATE 300 ML BOTTLE PO PRN (19:46)
[2019-05-24] MEDS ORDERED: P-EPHED 60MG/TRIPROLIDI 2.5MG TABLET PO PRN (19:46)
[2019-05-24] MEDS ORDERED: LOPERAMIDE HCL 2 MG CAPSULE PO PRN (19:46)
[2019-05-24] MEDS ORDERED: MENTHOL/PHENOL 1 EACH UD MM PRN (19:46)
[2019-05-24] MEDS ORDERED: MAGNESIUM HYDROX 2400MG/30ML ORAL SUSPENSION 30 ML CUP PO PRN (19:46)
[2019-05-24] MEDS ORDERED: ACETAMINOPHEN 325 MG TABLET (FP) PO PRN (19:46)
[2019-05-24] MEDS ORDERED: COLLOIDAL OATMEAL 1 BAR EACH TP PRN (19:48)
[2019-05-24] MEDS: THIAMINE HCL 100 MG TABLET (FP) PO SCH (22:16)
[2019-05-24] MEDS: MELATONIN 5 MG TABLETS PO PRN (22:17)
[2019-05-25] MEDS ORDERED: METHADONE HCL 10 MG TABLET PO SCH (08:15)
[2019-05-25] MEDS ORDERED: METHADONE HCL 5 MG TABLET ONE (08:29)
[2019-05-25] MEDS ORDERED: METHADONE HCL 10 MG TABLET ONE (08:30)
[2019-05-25] MEDS ORDERED: METHADONE HCL 40 MG DISPERSABLE TABLET ONE (08:31)
[2019-05-25] MEDS: METHADONE 40 MG, METHADONE 20 MG, METHADONE 5 MG PO SCH (08:34)
[2019-05-25] MEDS: PRENATAL VITAMINS W/ FOLIC ACID TABLET (FP) PO SCH (10:04)
[2019-05-25] MEDS: NICOTINE 14 MG/24 HOURS TOPICAL PATCH TD SCH (10:04)
[2019-05-25] MEDS: THIAMINE HCL 100 MG TABLET (FP) PO SCH (21:25)
[2019-05-25] MEDS: MELATONIN 5 MG TABLETS PO PRN (21:25)
[2019-05-26] MEDS ORDERED: METHADONE HCL 40 MG DISPERSABLE TABLET ONE (06:29)
[2019-05-26] MEDS ORDERED: METHADONE HCL 10 MG TABLET ONE (06:29)
[2019-05-26] MEDS ORDERED: METHADONE HCL 5 MG TABLET ONE (06:29)
[2019-05-26] MEDS: METHADONE 40 MG, METHADONE 20 MG, METHADONE 5 MG PO SCH (06:38)
[2019-05-26] MEDS: PRENATAL VITAMINS W/ FOLIC ACID TABLET (FP) PO SCH (10:01)
[2019-05-26] MEDS: NICOTINE 14 MG/24 HOURS TOPICAL PATCH TD SCH (10:01)
--- NOTE | 2019-05-26 12:31 | PN ---
[facility] Progress Note Note: Pt is a 48 y/o female with a hx of DAVID-alcohol,marijuana admitted to rehab through [facility]. Pt was discharged after detox on [facility] on 05/23/19 and came back for rehab on 05/24/19. PMHx:Denies. PSx Hx:Left great toe amputation, Appendectomy. Psych Hx:Depression. Pt reports she has no primary care provider and goes to the ER when needing care. Vital Signs - 24 hr 05/26/19 05/26/19 03:31 06:34 Temperature 98.1 F Pulse Rate 64 Respiratory 18 18 Rate Blood Pressure 121/90 Laboratory Tests 05/24/19 18:08 POC Urine HCG, Qual Negative Alert o x 3 nad oob ambulating with steady gait extremities/skin:no edema;skin intact. A/P new rehab pt DAVID Maintain safety increase po fluid cont. rehab follow up with counselor for aftercare planning.
[2019-05-26] MEDS: MELATONIN 5 MG TABLETS PO PRN (21:30)
[2019-05-26] MEDS: THIAMINE HCL 100 MG TABLET (FP) PO SCH (21:30)
[2019-05-27] MEDS ORDERED: METHADONE HCL 40 MG DISPERSABLE TABLET ONE (06:30)
[2019-05-27] MEDS ORDERED: METHADONE HCL 10 MG TABLET ONE (06:30)
[2019-05-27] MEDS ORDERED: METHADONE HCL 5 MG TABLET ONE (06:30)
[2019-05-27] MEDS: METHADONE 40 MG, METHADONE 20 MG, METHADONE 5 MG PO SCH (06:31)
[2019-05-27] MEDS: PRENATAL VITAMINS W/ FOLIC ACID TABLET (FP) PO SCH (10:37)
[2019-05-27] MEDS: NICOTINE 14 MG/24 HOURS TOPICAL PATCH TD SCH (10:37)
[2019-05-27 14:37] LABS: EPI CELLS 2.1 /HPF (0-5/HPF); HYALINE CASTS 6 /lpf (0-8); PH,URINE 6.5 (5.0-8.0); URINE APPEARANCE CLOUDY; URINE BILIRUBIN NEGATIVE (NEGATIVE); URINE COLOR YELLOW; URINE GLUCOSE (UA) NEGATIVE (NEGATIVE); URINE KETONE NEGATIVE (NEGATIVE); URINE LEUK ESTERASE TRACE (NEGATIVE); URINE NITRITE POSITIVE (NEGATIVE); URINE PROTEIN NEGATIVE (NEGATIVE); URINE RBC 5 /hpf (0-4); URINE WBC 4 /hpf (0-5)
[2019-05-27] MEDS: MELATONIN 5 MG TABLETS PO PRN (21:14)
[2019-05-27] MEDS: THIAMINE HCL 100 MG TABLET (FP) PO SCH (21:14)
[2019-05-28] MEDS ORDERED: METHADONE HCL 10 MG TABLET ONE (06:21)
[2019-05-28] MEDS ORDERED: METHADONE HCL 5 MG TABLET ONE (06:21)
[2019-05-28] MEDS ORDERED: METHADONE HCL 40 MG DISPERSABLE TABLET ONE (06:22)
[2019-05-28] MEDS: METHADONE 40 MG, METHADONE 20 MG, METHADONE 5 MG PO SCH (06:35)
[2019-05-28] MEDS ORDERED: ONDANSETRON *ODT* 4 MG TABLET SL PRN (08:13)
[2019-05-28] MEDS: NICOTINE 14 MG/24 HOURS TOPICAL PATCH TD SCH (10:17)
[2019-05-28] MEDS: PRENATAL VITAMINS W/ FOLIC ACID TABLET (FP) PO SCH (10:17)
--- NOTE | 2019-05-28 11:28 | PN ---
[facility] Progress Note Note: Pt requests HIV screening today. Reviewed UA with pt: Laboratory Tests 05/24/19 05/27/19 18:08 11:00 Urine Color Yellow Urine Appearance Cloudy Urine pH 6.5 Ur Specific [place] 1.022 Urine Protein Negative Urine Glucose (UA) Negative Urine Ketones Negative Urine Blood 1+ H Urine Nitrite Positive H Urine Bilirubin Negative Urine Urobilinogen 1.0 Ur Leukocyte Esterase Trace Urine WBC (Auto) 4 Urine RBC (Auto) 5 Urine Casts (Auto) 6 U Epithel Cells (Auto) 2.1 Urine Bacteria (Auto) 964.0 POC Urine HCG, Qual Negative UA noted Pt states she has no burning,itching,pain on urination or anytime. D/w pt will do UC to r/o UTI pt wants tx after UC result available. HIV screen ordered and drawn.
[2019-05-28] MEDS: MELATONIN 5 MG TABLETS PO PRN (21:45)
[2019-05-28] MEDS: THIAMINE HCL 100 MG TABLET (FP) PO SCH (21:45)
[2019-05-29] MEDS ORDERED: METHADONE HCL 5 MG TABLET ONE (06:23)
[2019-05-29] MEDS ORDERED: METHADONE HCL 40 MG DISPERSABLE TABLET ONE (06:24)
[2019-05-29] MEDS ORDERED: METHADONE HCL 10 MG TABLET ONE (06:24)
[2019-05-29] MEDS: METHADONE 40 MG, METHADONE 20 MG, METHADONE 5 MG PO SCH (06:32)
[2019-05-29] MEDS: NICOTINE 14 MG/24 HOURS TOPICAL PATCH TD SCH (10:16)
[2019-05-29] MEDS: PRENATAL VITAMINS W/ FOLIC ACID TABLET (FP) PO SCH (10:17)
--- NOTE | 2019-05-29 17:07 | PN ---
[facility] Progress Note Note: Patient started on Bacrtrim DS for UTI. She was seen by primary REHAB NURSING TECH for c/o urinary symptoms but deferred treatment until urinalysis and culture report confirmed UTI. UA positive for nitrites and culture with more than [id number] bacteria.
[2019-05-29] MEDS: THIAMINE HCL 100 MG TABLET (FP) PO SCH (21:58)
[2019-05-29] MEDS: MELATONIN 5 MG TABLETS PO PRN (21:58)
[2019-05-29] MEDS: SULFAMETHOXAZOLE/TRIMETHOPRIM 800MG/160MG D.S. TABLET PO SCH (21:58)
[2019-05-30] MEDS ORDERED: METHADONE HCL 10 MG TABLET ONE (06:15)
[2019-05-30] MEDS ORDERED: METHADONE HCL 5 MG TABLET ONE (06:15)
[2019-05-30] MEDS ORDERED: METHADONE HCL 40 MG DISPERSABLE TABLET ONE (06:16)
[2019-05-30] MEDS: METHADONE 40 MG, METHADONE 20 MG, METHADONE 5 MG PO SCH (06:28)
[2019-05-30] MEDS: SULFAMETHOXAZOLE/TRIMETHOPRIM 800MG/160MG D.S. TABLET PO SCH ×2 (09:44→21:32)
[2019-05-30] MEDS: PRENATAL VITAMINS W/ FOLIC ACID TABLET (FP) PO SCH (09:44)
[2019-05-30] MEDS: NICOTINE 14 MG/24 HOURS TOPICAL PATCH TD SCH (09:44)
[2019-05-30] MEDS: MELATONIN 5 MG TABLETS PO PRN (21:31)
[2019-05-30] MEDS: THIAMINE HCL 100 MG TABLET (FP) PO SCH (21:32)
[2019-05-31] MEDS ORDERED: METHADONE HCL 10 MG TABLET ONE (06:15)
[2019-05-31] MEDS ORDERED: METHADONE HCL 40 MG DISPERSABLE TABLET ONE (06:15)
[2019-05-31] MEDS ORDERED: METHADONE HCL 5 MG TABLET ONE (06:15)
[2019-05-31] MEDS: METHADONE 40 MG, METHADONE 20 MG, METHADONE 5 MG PO SCH (06:33)
[2019-05-31] MEDS: NICOTINE 14 MG/24 HOURS TOPICAL PATCH TD SCH (10:22)
[2019-05-31] MEDS: SULFAMETHOXAZOLE/TRIMETHOPRIM 800MG/160MG D.S. TABLET PO SCH ×2 (10:22→21:28)
[2019-05-31] MEDS: PRENATAL VITAMINS W/ FOLIC ACID TABLET (FP) PO SCH (10:22)
--- NOTE | 2019-05-31 10:58 | PN ---
[facility] Progress Note Note: Vital Signs - 24 hr 05/31/19 05/31/19 03:31 06:30 Temperature 98.0 F Pulse Rate 73 Respiratory 16 16 Rate Blood Pressure 101/64 Laboratory Tests 05/24/19 05/27/19 05/28/19 18:08 11:00 11:30 Urine Color Yellow Urine Appearance Cloudy Urine pH 6.5 Ur Specific [place] 1.022 Urine Protein Negative Urine Glucose (UA) Negative Urine Ketones Negative Urine Blood 1+ H Urine Nitrite Positive H Urine Bilirubin Negative Urine Urobilinogen 1.0 Ur Leukocyte Esterase Trace Urine WBC (Auto) 4 Urine RBC (Auto) 5 Urine Casts (Auto) 6 U Epithel Cells (Auto) 2.1 Urine Bacteria (Auto) 964.0 POC Urine HCG, Qual Negative HIV 1&2 Ag/Ab, 4th Gen Non reactive Microbiology 05/28/19 11:50 Urine - Urine Clean Catch Urine Culture - Final Escherichia Coli Pt was started on Bactrim DS 1 tab po BID x 10 days over the weekend.
[2019-05-31] MEDS: THIAMINE HCL 100 MG TABLET (FP) PO SCH (21:28)
[2019-05-31] MEDS: MELATONIN 5 MG TABLETS PO PRN (21:28)
[2019-06-01] MEDS ORDERED: METHADONE HCL 10 MG TABLET ONE (05:54)
[2019-06-01] MEDS ORDERED: METHADONE HCL 5 MG TABLET ONE (05:54)
[2019-06-01] MEDS ORDERED: METHADONE HCL 40 MG DISPERSABLE TABLET ONE (05:55)
[2019-06-01] MEDS ORDERED: METHADONE HCL 10 MG TABLET PO SCH (06:00)
[2019-06-01] MEDS: METHADONE 40 MG, METHADONE 20 MG, METHADONE 5 MG PO SCH (06:28)
--- NOTE | 2019-06-01 09:58 | CONSULT ---
[facility] Psychiatric Consult - Data Date of interview: 06/01/19 Admission source: [facility] Identifying data: Patient is a 48 year old single female, mother of seven, unemployed, homeless, and is not currently receiving financial assistance. This is one of multiple admissions for patient. Patient admitted to for alcohol and marijuana dependence. Substance Abuse History: Smoking Cessation. Smoking history: Current every day smoker. Have you smoked in the past 12 months: Yes. Aproximately how many cigarettes per day: 2. Cigars Per Day: 0. Hx Chewing Tobacco Use: No. Initiated information on smoking cessation: Yes. 'Breaking Loose' booklet given : 05/24/19. - Substance & Tx. History. Hx Alcohol Use: Yes. Hx Substance Use : Yes. Substance Use Type: Alcohol, Marijuana. Hx Substance Use Treatment: Yes ([facility]). - Substances abused. Alcohol. Substance route: Oral. Frequency: Daily. Amount used: 4 to 5 160z cans of beer. Age of first use: 18. Date of last use: 05/19/19. Marijuana/Hashish. Substance route: Oral. Frequency: Daily. Amount used: 4 to 5 blunts. Age of first use: 12. Date of last use: 05/19/19 Medical History: Appendectomy Psychiatric History: Patient's first psychiatric contact was at approximately 12 years of age due to behavior issues. Ms. Salinas is unable to recall the treatment received at that time. Her next psychiatric contact was in 2014 after she was admitted to [facility] for depression. Patient unable to recall medications prescribed but as per previous note patient has received treatment with lexapro 10mg daily. Ms. Salinas has several admissions to current facility and has been treated with lexapro. Patient has history of poor compliance to medications and outpatient treatment. She denies current outpatient psychiatric care. She reports feeling sad and depressed as she misses both her sisters whom a day apart three years ago. Patient denies thoughts to hurt self or other. She mentions her children and grandchildren as her protective factors. At present patient is sad, tearful, and is experiencing difficulty sleeping. Physical/Sexual Abuse/Trauma History: denies. Additional Comment: On methadone 60mg Mental Status Exam - Mental Status Exam Alert and Oriented to: Time, Place, Person Cognitive Function: Good Patient Appearance: Well Groomed Mood: Sad Affect: Mood Congruent Patient Behavior: Crying (tearful- reports missing her sisters whom are no longer living. ) Speech Pattern: Appropriate Voice Loudness: Moderately Soft/Quiet Thought Process: Intact, Goal Oriented Thought Disorder: Not Present Hallucinations: Denies Suicidal Ideation: Denies Homicidal Ideation: Denies Insight/Judgement: Poor Sleep: Poorly Appetite: Fair Muscle strength/Tone: Normal Gait/Station: Normal Psychiatric Findings - Problem List (Bude 1, 2,3) (1) Substance-induced sleep disorder Current Visit: Yes Status: Acute (2) Alcohol dependence Current Visit: Yes Status: Chronic Qualifiers: Substance use status: uncomplicated Qualified Code(s): F10.20 - Alcohol dependence, uncomplicated (3) Cannabis dependence Current Visit: Yes Status: Chronic (4) Nicotine dependence Current Visit: Yes Status: Chronic Qualifiers: Nicotine product type: cigarettes Substance use status: uncomplicated Qualified Code(s): F17.210 - Nicotine dependence, cigarettes, uncomplicated (5) Substance induced mood disorder Current Visit: Yes Status: Acute (6) Depressive disorder Current Visit: Yes Status: Acute - Initial Treatment Plan Initial Treatment Plan: Psychoeducation provided. Rehab in progress. Will Remeron 7.5mg HS. Recommendation: EKG needs to be completed before restarting patient on lexapro 10mg ( Patient is prescribed Methadone 65mg daily + Zofran PRN). Benefits and side efffects discussed. Verbal consent given.
[2019-06-01] MEDS: SULFAMETHOXAZOLE/TRIMETHOPRIM 800MG/160MG D.S. TABLET PO SCH ×2 (10:58→21:40)
[2019-06-01] MEDS: NICOTINE 14 MG/24 HOURS TOPICAL PATCH TD SCH (10:58)
[2019-06-01] MEDS: PRENATAL VITAMINS W/ FOLIC ACID TABLET (FP) PO SCH (10:58)
--- NOTE | 2019-06-01 17:20 | PN ---
[facility] Progress Note Note: Psychiatric nurse practitioner note: EKG complete. Normal sinus rhythm. Will order Lexapro 10mg daily.
[2019-06-01] MEDS ORDERED: PT OWN MED DRAWER 7, Y5N ONE (19:32)
[2019-06-01] MEDS: THIAMINE HCL 100 MG TABLET (FP) PO SCH (21:40)
[2019-06-01] MEDS: MELATONIN 5 MG TABLETS PO PRN (21:41)
[2019-06-01] MEDS: MIRTAZAPINE 15 MG TABLET (FP) PO SCH (21:41)
[2019-06-02] MEDS ORDERED: METHADONE HCL 40 MG DISPERSABLE TABLET ONE (06:23)
[2019-06-02] MEDS ORDERED: METHADONE HCL 10 MG TABLET ONE (06:23)
[2019-06-02] MEDS ORDERED: METHADONE HCL 5 MG TABLET ONE (06:23)
[2019-06-02] MEDS: METHADONE 40 MG, METHADONE 20 MG, METHADONE 5 MG PO SCH (06:30)
[2019-06-02] MEDS: NICOTINE 14 MG/24 HOURS TOPICAL PATCH TD SCH (10:13)
[2019-06-02] MEDS: ESCITALOPRAM OXALATE 10 MG TABLET PO SCH (10:13)
[2019-06-02] MEDS: SULFAMETHOXAZOLE/TRIMETHOPRIM 800MG/160MG D.S. TABLET PO SCH ×2 (10:13→21:40)
[2019-06-02] MEDS: PRENATAL VITAMINS W/ FOLIC ACID TABLET (FP) PO SCH (10:13)
[2019-06-02] MEDS: THIAMINE HCL 100 MG TABLET (FP) PO SCH (21:40)
[2019-06-02] MEDS: MIRTAZAPINE 15 MG TABLET (FP) PO SCH (21:40)
[2019-06-03] MEDS ORDERED: METHADONE HCL 10 MG TABLET ONE (06:29)
[2019-06-03] MEDS ORDERED: METHADONE HCL 5 MG TABLET ONE (06:29)
[2019-06-03] MEDS ORDERED: METHADONE HCL 40 MG DISPERSABLE TABLET ONE (06:30)
[2019-06-03] MEDS: METHADONE 40 MG, METHADONE 20 MG, METHADONE 5 MG PO SCH (06:31)
[2019-06-03] MEDS: ESCITALOPRAM OXALATE 10 MG TABLET PO SCH (10:13)
[2019-06-03] MEDS: NICOTINE 14 MG/24 HOURS TOPICAL PATCH TD SCH (10:13)
[2019-06-03] MEDS: PRENATAL VITAMINS W/ FOLIC ACID TABLET (FP) PO SCH (10:13)
[2019-06-03] MEDS: SULFAMETHOXAZOLE/TRIMETHOPRIM 800MG/160MG D.S. TABLET PO SCH (10:13)
--- NOTE | 2019-06-03 10:51 | PREP.REFER ---
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
[2019-06-03] MEDS: THIAMINE HCL 100 MG TABLET (FP) PO SCH (21:27)
[2019-06-03] MEDS: MELATONIN 5 MG TABLETS PO PRN (21:27)
[2019-06-03] MEDS: MIRTAZAPINE 15 MG TABLET (FP) PO SCH (21:27)
[2019-06-04] MEDS ORDERED: METHADONE HCL 5 MG TABLET ONE (05:42)
[2019-06-04] MEDS ORDERED: METHADONE HCL 40 MG DISPERSABLE TABLET ONE (05:43)
[2019-06-04] MEDS ORDERED: METHADONE HCL 10 MG TABLET ONE (05:43)
[2019-06-04] MEDS: METHADONE 40 MG, METHADONE 20 MG, METHADONE 5 MG PO SCH (06:23)
[2019-06-04] MEDS: NICOTINE 14 MG/24 HOURS TOPICAL PATCH TD SCH (10:19)
[2019-06-04] MEDS: ESCITALOPRAM OXALATE 10 MG TABLET PO SCH (10:19)
[2019-06-04] MEDS: PRENATAL VITAMINS W/ FOLIC ACID TABLET (FP) PO SCH (10:19)
[2019-06-04] MEDS: MIRTAZAPINE 15 MG TABLET (FP) PO SCH (21:47)
[2019-06-04] MEDS: THIAMINE HCL 100 MG TABLET (FP) PO SCH (21:48)
[2019-06-04] MEDS: MELATONIN 5 MG TABLETS PO PRN (21:49)
[2019-06-05] MEDS ORDERED: METHADONE HCL 5 MG TABLET ONE (06:03)
[2019-06-05] MEDS ORDERED: METHADONE HCL 40 MG DISPERSABLE TABLET ONE (06:04)
[2019-06-05] MEDS ORDERED: METHADONE HCL 10 MG TABLET ONE (06:04)
[2019-06-05] MEDS: METHADONE 40 MG, METHADONE 20 MG, METHADONE 5 MG PO SCH (06:42)
[2019-06-05] MEDS: ESCITALOPRAM OXALATE 10 MG TABLET PO SCH (10:37)
[2019-06-05] MEDS: PRENATAL VITAMINS W/ FOLIC ACID TABLET (FP) PO SCH (10:37)
[2019-06-05] MEDS: NICOTINE 14 MG/24 HOURS TOPICAL PATCH TD SCH (10:37)
[2019-06-05] MEDS: MIRTAZAPINE 15 MG TABLET (FP) PO SCH (21:25)
[2019-06-05] MEDS: THIAMINE HCL 100 MG TABLET (FP) PO SCH (21:25)
[2019-06-05] MEDS: MELATONIN 5 MG TABLETS PO PRN (21:26)
[2019-06-06] MEDS ORDERED: METHADONE HCL 5 MG TABLET ONE (06:16)
[2019-06-06] MEDS ORDERED: METHADONE HCL 10 MG TABLET ONE (06:17)
[2019-06-06] MEDS ORDERED: METHADONE HCL 40 MG DISPERSABLE TABLET ONE (06:17)
[2019-06-06] MEDS: METHADONE 40 MG, METHADONE 20 MG, METHADONE 5 MG PO SCH (06:32)
[2019-06-06] MEDS: NICOTINE 14 MG/24 HOURS TOPICAL PATCH TD SCH (10:40)
[2019-06-06] MEDS: ESCITALOPRAM OXALATE 10 MG TABLET PO SCH (10:40)
[2019-06-06] MEDS: PRENATAL VITAMINS W/ FOLIC ACID TABLET (FP) PO SCH (10:40)
[2019-06-06] MEDS: THIAMINE HCL 100 MG TABLET (FP) PO SCH (21:35)
[2019-06-06] MEDS: MIRTAZAPINE 15 MG TABLET (FP) PO SCH (21:35)
[2019-06-06] MEDS: MELATONIN 5 MG TABLETS PO PRN (21:35)
[2019-06-07] MEDS ORDERED: METHADONE HCL 10 MG TABLET ONE (06:20)
[2019-06-07] MEDS ORDERED: METHADONE HCL 5 MG TABLET ONE (06:20)
[2019-06-07] MEDS ORDERED: METHADONE HCL 40 MG DISPERSABLE TABLET ONE (06:21)
[2019-06-07] MEDS ORDERED: METHADONE HCL 10 MG TABLET PO SCH (06:45)
[2019-06-07] MEDS: METHADONE 40 MG, METHADONE 20 MG, METHADONE 5 MG PO SCH (06:49)
--- NOTE | 2019-06-07 10:04 | PN ---
[facility] Progress Note Note: Patient is scheduled for discharge tomorrow. Scripts for 30 days supply of medications(Lexapro 10 mg/day, Remeron 7.5 mg/hs) will be elecronically transmitted to [facility] at [address] [place] [address]
[2019-06-07] MEDS: NICOTINE 14 MG/24 HOURS TOPICAL PATCH TD SCH (10:39)
[2019-06-07] MEDS: PRENATAL VITAMINS W/ FOLIC ACID TABLET (FP) PO SCH (10:39)
[2019-06-07] MEDS: ESCITALOPRAM OXALATE 10 MG TABLET PO SCH (10:40)
[2019-06-07] MEDS: MIRTAZAPINE 15 MG TABLET (FP) PO SCH (21:37)
[2019-06-07] MEDS: THIAMINE HCL 100 MG TABLET (FP) PO SCH (21:37)
[2019-06-07] MEDS: MELATONIN 5 MG TABLETS PO PRN (21:38)
[2019-06-08] MEDS ORDERED: METHADONE HCL 10 MG TABLET ONE (06:22)
[2019-06-08] MEDS ORDERED: METHADONE HCL 5 MG TABLET ONE (06:22)
[2019-06-08] MEDS ORDERED: METHADONE HCL 40 MG DISPERSABLE TABLET ONE (06:23)
[2019-06-08] MEDS: METHADONE 40 MG, METHADONE 20 MG, METHADONE 5 MG PO SCH (06:32)
[2019-06-08 07:14] VITALS: BP 101/69; PULSE 89; TEMP 98
--- NOTE | 2019-06-08 08:22 | DS ---
[facility] Rehab Discharge Summary - [facility] Rehab Discharge Summary Admission Date: 05/24/19 Discharge Date: 06/08/19 - History Present History: Alcohol dependence, Cannabis dependence, Cocaine dependence, MMTP Pertinent Past History: 48 years old female completed Rehab. Patient denies medical history and reports psych. history of depression. She denies suicidal ideation at this time. She was in detox from 05/19/2019-05/23/2019. - Discharge Physical Exam Vital Signs: Vital Signs Temperature 98.0 F 06/08/19 06:20 Pulse Rate 89 06/08/19 06:20 Respiratory Rate 16 06/08/19 06:20 Blood Pressure 101/69 06/08/19 06:20 O2 Sat by Pulse Oximetry (%) Pertinent Admission Physical Exam Findings: Physical General Appearance: No apparent distress HEENTM: Normocephalic Respiratory: No Respiratory Distress Neck: supple Musculoskeletal: Full weight bearing, steady gait Extremities: Yes: Normal Inspection Neurological: CN 2-12 intact - Treatment Discharge Condition: Outpatient referral accepted (Medically stable for discharge. [facility]) - Medication Discharge Medications: Ambulatory Orders Escitalopram Oxalate [Lexapro -] 10 mg PO DAILY #30 tablet 06/07/19 Mirtazapine [Remeron -] 7.5 mg PO HS #14 tablet 06/07/19 - Medication-Assisted Treatment (MAT) Medication-Assisted Treatment (MAT): Yes MAT Follow-up Referral: [facility] at [facility] - Discharge Instructions Diet, activity, other medical instructions: Diet: Activity: Other medical instructions: - Diagnosis (1) Alcohol dependence Current Visit: Yes Status: Chronic Qualifiers: Substance use status: uncomplicated Qualified Code(s): F10.20 - Alcohol dependence, uncomplicated (2) Cannabis dependence Current Visit: Yes Status: Chronic (3) Opioid dependence on agonist therapy Current Visit: No Status: Chronic - Follow-up Referral Minutes to complete discharge: 15 - AMA Did Patient Leave Against Medical Advice: No
== END 2019-06-08 09:25 | disposition home or self-care (01) | DRG 772 ==
LOC: YASAS 15:14 → Y3E 20:04
PROVIDERS: ADMIT Allergy & Immunology; ATTEND Allergy & Immunology
PROC: HZ42ZZZ Group Counseling for Substance Abuse Treatment, Cognitive-Behavioral (ICD-10-PCS; principal; 2019-05-24)
DX: F10.20 Alcohol dependence, uncomplicated (principal); F11.20 Opioid dependence, uncomplicated; F12.20 Cannabis dependence, uncomplicated; F17.210 Nicotine dependence, cigarettes, uncomplicated; F19.24 Other psychoactive substance dependence with psychoactive substance-induced mood disorder; F19.282 Other psychoactive substance dependence with psychoactive substance-induced sleep disorder; F32.9 Major depressive disorder, single episode, unspecified; N39.0 Urinary tract infection, site not specified; K08.109 Complete loss of teeth, unspecified cause, unspecified class; Z88.0 Allergy status to penicillin; Z59.0 Homelessness
CPT/HCPCS: 36415; 81003; 81025; 87086; 87186; 87389